=== PATIENT | female | born 1990 | race Two or more races ===

== ENCOUNTER 2016-06-18 11:41 | Inpatient (IN) | payer BC ==
--- NOTE | 2016-06-18 12:00 | L&D Flow Sheet ---
LD Flowsheet Datetime Report Generated by CPN: 06/18/2016 12:00 Datetime: 06/18/2016 11:58 Vital Signs NBP Sys/Tita/Mean (mmHg): 110 (QS system process) : 67 (QS system process) : 82 (QS system process) Pulse: 78 (QS system process)
[2016-06-18 12:39] LABS: APPEARANCE,URINE CLEAR; BILIRUBIN,URINE NEGATIVE (NEGATIVE); GLUCOSE, URINE NEGATIVE (NEGATIVE); KETONES,URINE NEGATIVE (NEGATIVE); LEUKOCYTE ESTERASE,URINE NEGATIVE (NEGATIVE); NITRITE,URINE NEGATIVE (NEGATIVE); PROTEIN,URINE NEGATIVE (NEGATIVE); UROBILINOGEN,URINE NEGATIVE mg/dL (<2.0)
[2016-06-18] MEDS ORDERED: RINGERS SOLUTION,LACTATED 1,000 ML IV ONE (14:03)
[2016-06-18] MEDS ORDERED: RINGERS SOLUTION,LACTATED 1,000 ML IV PRN (14:03)
[2016-06-18] MEDS ORDERED: FENTANYL CITRATE INJ/PF 100 MCG/2 ML AMPUL ONE (14:39)
[2016-06-18] MEDS ORDERED: PHENYLEPHRINE HCL INJ/PF 10 MG/1 ML SDV ONE (14:39)
[2016-06-18] MEDS ORDERED: EPHEDRINE SULFATE INJ 50 MG/1 ML AMPULE ONE (14:39)
[2016-06-18] MEDS ORDERED: BUPIVACAINE HCL 0.25 % INJ/PF (2.5 MG/1 ML) 30 ML VIAL ONE (14:40)
[2016-06-18] MEDS ORDERED: FENTANYL/BUPIVACAINE/NS/PF 200 MCG/100 ML RTUINJ EPI ONE (14:40)
[2016-06-18 14:42] LABS: ABSOLUTE BASOPHILS # (AUTO) 0.1 10^3/uL (0.0-0.2); ABSOLUTE EOSINOPHILS # (AUTO) 0.1 10^3/uL (0.0-0.6); ABSOLUTE LYMPHOCYTES (AUTO) 1.8 10^3/uL (0.5-4.7); ABSOLUTE MONOCYTES (AUTO) 0.7 10^3/uL (0.1-1.4); BASOPHILS % (AUTO) 0.4 % (0-2); EOSINOPHILS % (AUTO) 0.4 % (0-6); HEMATOCRIT 41.3 % (36.0-47.0); HEMOGLOBIN 13.7 g/dL (12.0-15.5); HGB HCT DIFFERENCE -0.2; MEAN CORPUSCULAR HGB CONC 33.1 g/dL (32.0-36.0); MEAN CORPUSCULAR VOLUME 81 fl (80-97); MONOCYTES % (AUTO) 5.5 % (3-13); RED BLOOD COUNT 5.07 10^6/uL (3.72-5.28); RED CELL DISTRIBUTION WIDTH 16.4 % (11.5-14.0); SEGMENTED NEUTROPHILS % (AUTO) 80.7 % (42-78); WHITE BLOOD COUNT 13.6 10^3/uL (4.0-10.5)
--- NOTE | 2016-06-18 16:00 | L&D Flow Sheet ---
LD Flowsheet Datetime Report Generated by CPN: 06/18/2016 16:00 Datetime: 06/18/2016 15:55 IV/Blood Work: New IV Bag Hung (Carol Marlatt, RN) Datetime: 06/18/2016 15:54 NBP Sys/Tita/Mean (mmHg): 119 (QS system process) : 56 (QS system process) : 81 (QS system process) Pulse: 91 (QS system process) LaborFlag: Antepartum (QS system process) Datetime: 06/18/2016 15:53 NBP Sys/Tita/Mean (mmHg): 149 (QS system process) : 63 (QS system process) : 91 (QS system process) Pulse: 106 (QS system process) LaborFlag: Antepartum (QS system process) Datetime: 06/18/2016 15:52 NBP Sys/Tita/Mean (mmHg): 156 (QS system process) : 69 (QS system process) : 99 (QS system process) Pulse: 94 (QS system process) LaborFlag: Antepartum (QS system process) Datetime: 06/18/2016 15:50 NBP Sys/Tita/Mean (mmHg): 148 (QS system process) : 91 (QS system process) : 104 (QS system process) Pulse: 101 (QS system process) LaborFlag: Antepartum (QS system process) Datetime: 06/18/2016 15:49 NBP Sys/Tita/Mean (mmHg): 115 (QS system process) : 66 (QS system process) : 86 (QS system process) Pulse: 102 (QS system process) LaborFlag: Antepartum (QS system process) Datetime: 06/18/2016 15:48 NBP Sys/Tita/Mean (mmHg): 114 (QS system process) : 67 (QS system process) : 85 (QS system process) Pulse: 96 (QS system process) LaborFlag: Antepartum (QS system process) Datetime: 06/18/2016 15:47 NBP Sys/Tita/Mean (mmHg): 129 (QS system process) : 78 (QS system process) : 97 (QS system process) Pulse: 89 (QS system process) Pulse: 86 (QS system process) SpO2 (%): 100 (QS system process) LaborFlag: Antepartum (QS system process) Datetime: 06/18/2016 15:46 NBP Sys/Tita/Mean (mmHg): 125 (QS system process) : 72 (QS system process) : 93 (QS system process) Pulse: 92 (QS system process) Epidural Procedure: Cath Placed (Carol Milian RN) Epidural Procedure: Test Dose (Carol Milian RN) LaborFlag: Antepartum (QS system process) Datetime: 06/18/2016 15:42 Pulse: 97 (QS system process) SpO2 (%): 99 (QS system process) LaborFlag: Antepartum (QS system process) Datetime: 06/18/2016 15:41 Procedure Type: Epidural (Carol Milian, CARMENCITA) Procedure Verify: Correct Patient Identity; Correct Side and Site are Marked; Accurate Procedure Consent Form; Correct Patient Position (Carol Milian RN) Anesthesia Plans: Epidural (Carol Milian RN) Epidural Positioning: Sitting (Carol Milian, CARMENCITA) Datetime: 06/18/2016 15:39 Epidural Positioning: Sitting (Carol Milian RN) Anesthesia Comments: Dr. Rose at bedside (Carol Milian, CARMENCITA) Datetime: 06/18/2016 15:36 Patient Position/Activity: Standing (Carol Marlatt, RN) Datetime: 06/18/2016 15:33 Pulse: 104 (QS system process) SpO2 (%): 90 (QS system process) LaborFlag: Antepartum (QS system process) Datetime: 06/18/2016 15:32 Pulse: 104 (QS system process) SpO2 (%): 95 (QS system process) LaborFlag: Antepartum (QS system process) Datetime: 06/18/2016 15:29 NBP Sys/Tita/Mean (mmHg): 124 (QS system process) : 88 (QS system process) : 102 (QS system process) Pulse: 111 (QS system process) LaborFlag: Antepartum (QS system process) Datetime: 06/18/2016 15:27 Pulse: 106 (QS system process) SpO2 (%): 100 (QS system process) LaborFlag: Antepartum (QS system process) Datetime: 06/18/2016 15:25 Epidural Positioning: Sitting (Carol Marlatt, RN) Datetime: 06/18/2016 15:04 IV/Blood Work: New IV Bag Hung (Carol Marlatt, RN) Datetime: 06/18/2016 15:00 Monitor Mode: External (Carol Marlatt, RN) Frequency (min): 3.5-7 (Carol Marlatt, RN) Quality: Moderate (Carol Marlatt, RN) Duration (sec): 80-120 (Carol Marlatt, RN) Resting Tone (Palpate): Relaxed (Carol Marlatt, RN) Monitor Mode: External US (Carol Marlatt, RN) FHR Baseline Rate : 120 (Carol Marlatt, RN) Variability: Moderate 6-25 bpm (Carol Marlatt, RN) Accelerations: 15X15 (Carol Marlatt, RN) Decelerations: Early (Carol Marlatt, RN) Datetime: 06/18/2016 14:51 I/O Interventions: Up to BR (Carol Marlatt, RN) Datetime: 06/18/2016 14:30 Monitor Mode: External (Carol Marlatt, RN) Frequency (min): 2-5 (Carol Marlatt, RN) Quality: Moderate (Carol Marlatt, RN) Duration (sec): 50-90 (Carol Marlatt, RN) Resting Tone (Palpate): Relaxed (Carol Marlatt, RN) Monitor Mode: External US (Carol Marlatt, RN) FHR Baseline Rate : 120 (Carol Marlatt, RN) Variability: Moderate 6-25 bpm (Carol Marlatt, RN) Accelerations: 15X15 (Carol Marlatt, RN) Decelerations: None (Carol Marlatt, RN) Comfort Measures: Rocking Chair (Carol Marlatt, RN) Datetime: 06/18/2016 14:28 I/O Interventions: Up to BR (Carol Marlatt, RN) Datetime: 06/18/2016 14:25 Pain Coping: Breathing Through Contractions (Carol Marlatt, RN) Datetime: 06/18/2016 14:23 IV/Blood Work: Labs Drawn (Carol Marlatt, RN) IV/Blood Work: IV Infusing per Order (Carol Marlatt, RN) Patient Care Comments: LR @ 125ml/hr (Carol Marlatt, RN) Datetime: 06/18/2016 14:15 IV/Blood Work: IV Started (Carol Milian RN) Patient Care Comments: 18G left forearm, infusing without problems, no reddness noted (Carol Milian RN) Datetime: 06/18/2016 14:01 Monitor Interventions for FHR: Ultrasound Adjusted (Carol Milian RN) Comments: tracing maternal HR (Carol Milian RN) Datetime: 06/18/2016 12:59 NBP Sys/Tita/Mean (mmHg): 115 (QS system process) : 69 (QS system process) : 87 (QS system process) Pulse: 74 (QS system process) Monitor Mode: External (Carol Milian RN) Frequency (min): 3-4.5 (Carol Milian RN) Quality: Mild/Moderate (Carol Milian RN) Duration (sec): 50-120 (Carol Milian RN) Resting Tone (Palpate): Relaxed (Carol Milian RN) Monitor Mode: External US (Carol Milian RN) FHR Baseline Rate : 125 (Carol Milian RN) Variability: Moderate 6-25 bpm (Carol Milian RN) Accelerations: 15X15 (Carol Milian RN) Decelerations: None (Carol Milian RN) Comments: monitors discontinued, patient ambulating (Carol Milian RN) LaborFlag: Antepartum (QS system process) Datetime: 06/18/2016 12:58 Provider Reviewed Strip: Yes (Carol Milian RN) Communication: Provider Orders Received; Call/Page Placed to Provider (Carol Milian RN) Provider Notified (Name): Deborah Streeter CNM (Carol Milian RN) Notification Reason: Status Update; Status; Uterine Activity; Pain (Carol Milian RN) Communication Comments: Notifed provider of reactive NST, CTXs, and SVE. Received order to have patient walk for an hour. (Carol Milian RN) Datetime: 06/18/2016 12:57 Dilatation (cm): 4.0 (Carol Marlatt, RN) Effacement (%): 70 (Carol Marlatt, RN) Station: -1 (Carol Marlatt, RN) Exam by: Doug Milian RN (Carol Bridgetlatt, RN) Cervix, Consistency: Moderate (Carol Marlatt, RN) Cervix, Position: Posterior (Carol Marlatt, RN) Datetime: 06/18/2016 12:30 Monitor Mode: External; Palpation (Carol Gilllatt, RN) Frequency (min): 2-6 (Carol Bridgetlatt, RN) Quality: Mild/Moderate (Carol Marlatt, RN) Duration (sec): 70-110 (Carol Marlatt, RN) Resting Tone (Palpate): Relaxed (Carol Bridgetlatt, RN) Monitor Mode: External US (Carol Bridgetlatt, RN) FHR Baseline Rate : 125 (Carol Marlatt, RN) Variability: Moderate 6-25 bpm (Carlo Marlatt, RN) Accelerations: 10X10 (Carol Marlatt, RN) Decelerations: None (Carol Marlatt, RN) Datetime: 06/18/2016 12:28 NBP Sys/Tita/Mean (mmHg): 118 (QS system process) : 64 (QS system process) : 85 (QS system process) Pulse: 81 (QS system process) LaborFlag: Antepartum (QS system process) Datetime: 06/18/2016 12:27 I/O Interventions: Popsicle (Carol Marlatt, RN) Datetime: 06/18/2016 12:19 Patient Position/Activity: Left Lateral; Low Fowlers (Carol Marlatt, RN) Datetime: 06/18/2016 12:13 Patient Position/Activity: Right Lateral; Low Fowlers (Carol Milian RN) Datetime: 06/18/2016 12:04 Patient Position/Activity: Right Lateral (Carol Milian RN) Datetime: 06/18/2016 12:01 Dilatation (cm): 3.5 (Carol Milian RN) Effacement (%): 70 (Carol Milian RN) Station: -1 (Carol Milian RN) Exam by: Doug Milian RN (Carol Milian RN) Vaginal Bleeding: None (Carol Milian RN) Cervix, Consistency: Moderate (Carol Milian RN) Cervix, Position: Posterior (Carol Milian RN) Datetime: 06/18/2016 12:00 Frequency (min): 5-6 minutes (Carol Milian RN) Pain Scale: 3 (Carol Milian RN) Pain Presence: Intermittent (Carol Milian RN) Pain Type: Cramping; Contraction (Carol Milian RN) Pain Location: Abdomen (Carol Milian RN) Pain Goal: 1 (Carol Milian RN) Pain Relief Measures: Comfort Measures (Carol Milian RN) Pain Coping: Talking Through Contractions; Breathing Through Contractions (Carol Milian RN) Membrane Status: Intact (Carol Milian RN) Vaginal Bleeding: None (Carol Milian RN) Level of Consciousness: Fully Conscious (Carol Milian RN) DTR's/Clonus: DTRs 2+; No Clonus (Carol Milian RN) Headache: Denies (Carol Milian RN) Breath Sounds, Left: Clear and Equal (Carol Milian RN) Breath Sounds, Right: Clear and Equal (Carol Milian RN) Nausea/Vomiting: Denies (Carol Milian RN) RUQ Epigastric Pain: Denies (Carol Milian RN) Instructional Method: Demo; Verbal; Patient Instructed; Family/Support Person Instructed; Verbalized Understanding (Carol Milian RN) Plan of Care: Plan of Care Discussed; Labor (Carol Milian RN) Unit Routine: Bethany to Room; Call Brown; Bed; Monitoring (Carol Milian RN) Labor/Induction: Labor Stages (Carol Milian RN) Pain Management: Comfort Measures (Carol Milian RN) LaborFlag: Antepartum (QS system process)
[2016-06-18] MEDS ORDERED: MISOPROSTOL 0.2 MG TABLET ONE (16:43)
[2016-06-18] MEDS ORDERED: LIDOCAINE 1% INJ-PF (10 MG/ML) 30 ML SDV ONE (16:43)
[2016-06-18] MEDS ORDERED: OXYTOCIN/NORMAL SALINE 20 UNIT/1,000 ML RTUINJ ONE (16:43)
[2016-06-18] MEDS ORDERED: PROMETHAZINE HCL 25 MG TABLET PO PRN (17:45)
[2016-06-18] MEDS ORDERED: PSEUDOEPHEDRINE HCL 30 MG TABLET PO PRN (17:45)
[2016-06-18] MEDS ORDERED: DIPHENHYDRAMINE HCL 25 MG CAPSULE PO PRN (17:45)
[2016-06-18] MEDS ORDERED: DIBUCAINE 1% OINTMENT 28 GM TP PRN (17:45)
[2016-06-18] MEDS ORDERED: MAGNESIUM HYDROXIDE SUSP 30 ML UDCUP PO PRN (17:45)
[2016-06-18] MEDS ORDERED: MEASLES,MUMPS&RUBELLA VACC/PF 0.5 ML VIAL SUBCUT PRN (17:45)
[2016-06-18] MEDS ORDERED: ACETAMINOPHEN 650 MG SUPP.RECT PR PRN (17:45)
[2016-06-18] MEDS ORDERED: OXYTOCIN/NORMAL SALINE 1,000 ML IV PRN (17:45)
[2016-06-18] MEDS ORDERED: ZOLPIDEM TARTRATE 5 MG TABLET PO PRN (17:45)
[2016-06-18] MEDS ORDERED: NA PHOS,M-B/NA PHOS,DI-BA (ADULT) 133 ML ENEMA PR PRN (17:45)
[2016-06-18] MEDS ORDERED: PROMETHAZINE HCL 25 MG SUPP.RECT PR PRN (17:45)
[2016-06-18] MEDS ORDERED: GLYCERIN/WITCH HAZEL LEAF 1 EACH MED..PAD TP PRN (17:45)
[2016-06-18] MEDS ORDERED: BENZOCAINE/MENTHOL AEROSOL SPRAY 56 ML TOP PRN (17:45)
[2016-06-18] MEDS ORDERED: DIPH/PERTUSS(ACELL)/TETANUS VAC/PF 0.5 ML SYR (>=10YO) IM PRN (17:45)
[2016-06-18] MEDS ORDERED: PROMETHAZINE HCL INJ 25 MG/1 ML VIAL IV PRN (17:45)
[2016-06-18] MEDS ORDERED: ACETAMINOPHEN WITH CODEINE #3 TABLET PO PRN (17:45)
[2016-06-18] MEDS: FERROUS SULFATE 325 MG TABLET PO SCH (21:04)
[2016-06-18] MEDS: DOCUSATE SODIUM 100 MG CAPSULE PO SCH (21:04)
[2016-06-18] MEDS: FAMOTIDINE 20 MG TABLET PO SCH (21:14)
[2016-06-18] MEDS: IBUPROFEN 800 MG TABLET PO SCH (21:14)
[2016-06-19] MEDS: ACETAMINOPHEN WITH CODEINE #3 TABLET PO PRN (03:31)
[2016-06-19] MEDS: IBUPROFEN 800 MG TABLET PO SCH ×3 (05:37→21:33)
--- NOTE | 2016-06-19 06:10 | L&D General Admission ---
General Admit Datetime Report Generated by CPN: 06/19/2016 06:00 INFORMATION Patient Age: 25 (04/24/2017 10:51:QS system process) EDC: 06/22/2016 00:00 (06/18/2016 12:06:Carol Milian RN) : 3 (06/18/2016 12:06:Carol Milian RN) Para: 1 (06/18/2016 12:06:Carol Milian RN) Term: 1 (06/18/2016 12:06:SELWYN Rojas) : 0 (06/18/2016 12:06:SELWYN Rojas) Spontaneous Abortions: 0 (06/18/2016 12:06:SELWYN Rojas) Induced Abortions: 0 (06/18/2016 12:06:SELWYN Rojas) Livin (06/18/2016 12:06:SELWYN oRjas) Cesareans: 0 (06/18/2016 12:06:SELWYN Rojas) VBACs: 0 (06/18/2016 12:06:SELWYN Rojas) Ectopic: 0 (06/18/2016 12:06:SELWYN Rojas) Multiple Births: 0 (06/18/2016 12:06:SELWYN Rojas) Baby, Number in Womb: 1 (06/18/2016 12:06:SELWYN Rojas) CARE [facility] Explosive [facility] (06/18/2016 12:06:Carol Milian RN) Adequate Care: Yes (06/18/2016 12:06:Carol Milian RN) Height (in): 61 (06/18/2016 19:28:QS system process) ALLERGIES Medication Allergy: No (06/18/2016 12:06:Carol Milian RN) Medication Allergies: No Known Allergies (06/18/2016) (06/18/2016 12:12:QS system process) Latex Allergy: No Latex Allergies (06/18/2016 12:06:Carol Milian RN) COMMUNICATION Primary Language: Syrian (06/18/2016 12:06:Carol Milian RN) DEMOGRAPHICS Address: [address] [place] [id number] (06/18/2016 11:41:QS system process) Zipcode: [address] (06/18/2016 11:41:QS system process) Home (06/18/2016 11:41:QS system process) N: [id number] (04/24/2016 10:51:QS system process) Next of Kin Name: ANIVAL GRANDA (04/24/2016 10:51:QS system process) Next of Kin (06/18/2016 11:41:QS system process) Next of Kin Relationship: MO (04/24/2016 10:51:QS system process) Date of : 1990 (04/24/2016 10:51:QS system process) Marital Status: (04/24/2016 10:51:QS system process) Sex: Female (04/24/2016 10:51:QS system process) Race: Other (04/24/2016 10:51:QS system process) Ethnicity: or (04/24/2016 10:51:QS system process) Jew: None (04/24/2016 10:51:QS system process) DRUG AND ALCOHOL USE Alcohol: No (06/18/2016 12:06:Carol Milian RN) Cigarettes: Never Smoker. [phone] (06/18/2016 12:06:Carol Milian RN) Marijuana: No (06/18/2016 12:06:Carol Milian RN) Cocaine: No (06/18/2016 12:06:Carol Milian RN) Other Illicit Drugs: No (06/18/2016 12:06:Carol Milian RN) VACCINE HISTORY Influenza Vaccine: Yes (06/18/2016 12:06:Carol Milian RN) Influenza Date: 03-27-16 (Annotations: Data stored by [employer] on behalf of user) (06/18/2016 12:06:Carol Milian RN) Tetanus Vaccine: Yes (06/18/2016 12:06:SELWYN Rojas) Tetanus Date: 03-27-16 (06/18/2016 12:06:SELWYN Rojas) Tdap Vaccine: Yes (06/18/2016 12:06:Carol Milian RN) Tdap Date: 03-27-16 (06/18/2016 12:06:Carol Milian RN) Manager Rn: [facility] (06/18/2016 12:06:Carol Milian RN) Feeding Preference: Breast (06/18/2016 12:06:Carol Milian RN) Benefit of Breast Feed Discussed: Yes (06/18/2016 12:06:Carol Milian RN) Circumcision: No (06/18/2016 12:06:Carol Milian RN) Classes Attended: No (06/18/2016 12:06:Carol Milian RN) Tubal Ligation: No (06/18/2016 12:06:Carol Milian RN) Tubal Authorization Signed: N/A (06/18/2016 12:06:Carol Milian RN) Consent: N/A (06/18/2016 12:06:Carol Milian RN) Consent Signed: N/A (06/18/2016 12:06:Carol Milian RN) Pain Management Plans: Epidural (06/18/2016 12:06:Carol Milian RN) Support Person: Mario (06/18/2016 12:06:Carol Milian RN) Support Person Relationship: (06/18/2016 12:06:Carol Milian RN) Cultural/Spritual Practice: [place]a (06/18/2016 12:06:Carol Milian RN) Spir/Cult Dietary Needs: No (06/18/2016 12:06:Carol Milian RN) LIVING SITUATION/DISCHARGE PLAN Living Arrangements: [place] (06/18/2016 12:06:Carol Milian RN) Adequate Access to:: Electric; Heat; Refrigeration; Plumbing/Running water; Phone; Transportation (06/18/2016 12:06:Carol Milian RN) WIC Program: [place] (06/18/2016 12:06:Carol Milian RN) 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 Power Generation Equipment 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 Person: Mario (06/18/2016 12:06:Carol Milian RN) Person to Help after Discharge: Mario (06/18/2016 12:06:Carol Milian RN) Currently Using Commun Resources: [place] (06/18/2016 12:06:Carol Milian RN) Car Seat for Discharge: Yes (06/18/2016 12:06:Carol Milian RN) Adoption Requested: No (06/18/2016 12:06:Carol Milian RN) LABS Blood Type: O Positive (06/18/2016 12:06:Carol Milian RN) Antibody Screen: negative (06/18/2016 12:06:Carol Milian RN) Hemoglobin: 13.7 (06/18/2016 14:20:QS system process) Hematocrit: 41.3 (06/18/2016 14:20:QS system process) MCV: 81 (06/18/2016 14:20:QS system process) Group Beta Strep: negative (06/18/2016 12:06:Carol Milian RN) Chlamydia: Negative (06/18/2016 12:06:Carol Milian RN) RPR/VDRL: Nonreactive (06/18/2016 12:06:Carol Milian RN) Hepatitis B: Negative (06/18/2016 12:06:Carol Milian RN) Rubella: Immune (06/18/2016 12:06:Carol Milian RN) OB/PREVIOUS HISTORY History of Previous : No (06/18/2016 12:06:Carol Milian RN) History of Gestational Diabetes: No (06/18/2016 12:06:Carol Milian RN) History of PIH: No (06/18/2016 12:06:Carol Milian RN) History of Incompetent Cervix: No (06/18/2016 12:06:Carol Milian RN) History of Placenta Previa/Abrup: No (06/18/2016 12:06:Carol Milian RN) History of Macrosomia: No (06/18/2016 12:06:Carol Milian RN) History of IUGR: No (06/18/2016 12:06:Carol Milian RN) History of Hemorrhage: No (06/18/2016 12:06:Carol Milian RN) History of Loss/Stillborn: No (06/18/2016 12:06:Carol Milian RN) History of : No (06/18/2016 12:06:Carol Milian RN) History of D (Rh) Sensitization: No (06/18/2016 12:06:Carol Milian RN) History Recurrent Loss/Stillborn: No (06/18/2016 12:06:Carol Milian RN) History Depression/PP Depression: No (06/18/2016 12:06:Carol Milian RN) History of Uterine Anomaly/KATHERIN: No (06/18/2016 12:06:Carol Milian RN) History of Infertility: No (06/18/2016 12:06:Carol Milian RN) History of ART Treatment: No (06/18/2016 12:06:Carol Milian RN) History of KATHERIN: No (06/18/2016 12:06:Carol Milian RN) Comments Obstetrical History: G1: 2009 - vaginal, female 6#4oz G2: 2011 SAB G3: current (06/18/2016 12:06:Carol Milian RN) MEDICAL HISTORY Med Hx Diabetes: No (06/18/2016 12:06:Carol Milian RN) Med Hx Hypertension: No (06/18/2016 12:06:Carol Milian RN) Med Hx Heart Disease: No (06/18/2016 12:06:Carol Milian RN) Med Hx Autoimmune Disorder: No (06/18/2016 12:06:Carol Milian RN) Med Hx Kidney Disease/UTI: No (06/18/2016 12:06:Carol Milian RN) Med Hx Neurologic/Epilepsy: No (06/18/2016 12:06:Carol Milian RN) Med Hx Psychiatric Disorders: No (06/18/2016 12:06:Carol Milian RN) Med Hx Hepatitis/Liver Disease: No (06/18/2016 12:06:Carol Milian RN) Med Hx Varicosities/Phlebitis: No (06/18/2016 12:06:Carol Milian RN) Med Hx Thyroid Dysfunction: No (06/18/2016 12:06:Carol Milian RN) Med Hx Trauma/Violence: No (06/18/2016 12:06:Carol Milian RN) Med Hx Blood Transfusion: No (06/18/2016 12:06:Carol Milian RN) Med Hx Pulmonary (Asthma,TB): No (06/18/2016 12:06:Carol Milian RN) Med Hx Breast: No (06/18/2016 12:06:Carol Milian RN) Med Hx ATTIC BLOWER Surgery: No (06/18/2016 12:06:Carol Milian RN) Med Hx Hospitalization/Surgery: No (06/18/2016 12:06:Carol Milian RN) Med Hx Anesthetic Complications: No (06/18/2016 12:06:Carol Milian RN) Med Hx Abnormal Pap Smear: No (06/18/2016 12:06:Carol Milian RN) Other Medical Diseases: No (06/18/2016 12:06:Carol Milian RN) Med Hx Significant Family Hx: No (06/18/2016 12:06:Carol Milian RN) INFECTIOUS HISTORY Inf Hx Gonorrhea: No (06/18/2016 12:06:Carol Milian RN) Inf Hx Chlamydia: No (06/18/2016 12:06:Carol Milian RN) Inf Hx Syphilis: No (06/18/2016 12:06:Carol Milian RN) Inf Hx HIV/AIDS: No (06/18/2016 12:06:Carol Milian RN) Inf Hx Human Papilloma Virus: No (06/18/2016 12:06:Carol Milian RN) Inf Hx Pt/Partner Genital Herpes: No (06/18/2016 12:06:Carol Milian RN) Inf Hx Tuberculosis/Exposure: No (06/18/2016 12:06:Carol Milian RN) Inf Hx Hepatitis B,C: No (06/18/2016 12:06:Carol Milian RN) Inf Hx Rash or Viral Illness: No (06/18/2016 12:06:Carol Milian RN) GENETIC HISTORY Gen Hx Age >=35 at JUNIOR: No (06/18/2016 12:06:Carol Milian RN) Gen Hx Thalassemia: No (06/18/2016 12:06:Carol Milian RN) Gen Hx Congenital Heart Defect: No (06/18/2016 12:06:Carol Milian RN) Gen Hx Neural Tube Defect: No (06/18/2016 12:06:Carol Milian RN) Gen Hx Down's Syndrome: No (06/18/2016 12:06:Carol Milian RN) Gen Hx Aniceto-Sachs: No (06/18/2016 12:06:Carol Milian RN) Gen Hx Raeann: No (06/18/2016 12:06:Carol Milian RN) Gen Hx Familial Dysautonomia: No (06/18/2016 12:06:Carol Milian RN) Gen Hx Sickle Cell Disease/Trait: No (06/18/2016 12:06:Carol Milian RN) Gen Hx Hemophilia/Blood Disorder: No (06/18/2016 12:06:Carol Milian RN) Gen Hx Muscular Dystrophy: No (06/18/2016 12:06:Carol Milian RN) Gen Hx Cystic Fibrosis: No (06/18/2016 12:06:Carol Milian RN) Gen Hx [place] Chorea: No (06/18/2016 12:06:Carol Milian RN) Gen Hx Mental Retardation/Autism: No (06/18/2016 12:06:Carol Milian RN) Gen Hx Tested for Fragile X: No (06/18/2016 12:06:Carol Milian RN) Gen Hx Other Inher/Chromosomal: No (06/18/2016 12:06:Carol Milian RN) Gen Hx Maternal Metabolic DO: No (06/18/2016 12:06:Carol Milian RN) Gen Hx Pt Father or FOB Defect: No (06/18/2016 12:06:Carol Milian RN) Gen Hx Other Genetic History: No (06/18/2016 12:06:Carol Milian RN) Gen Hx Drugs/Meds since LMP: No (06/18/2016 12:06:Carol Milian RN)
--- NOTE | 2016-06-19 06:10 | L&D Current Admission ---
Current Admit Datetime Report Generated by N: 06/19/2016 06:00 ADMISSION INFORMATION Current Admit Date/Time: 06/18/2016 14:00 (06/18/2016 14:21:Carol Milian RN) Reason for Admission: Onset of Labor (06/18/2016 14:21:Carol Milian RN) Chief Complaint: Contractions (06/18/2016 12:00:Carol Milian RN) EGA per Dates: 39.3 (06/18/2016 14:21:QS system process) Method of Arrival: Ambulatory (06/18/2016 14:21:Carol Milian RN) Admitted From: Home (06/18/2016 14:21:Carol Milian RN) Reason for Induction: Not Applicable (06/18/2016 14:21:Carol Milian RN) Records Available: Yes (06/18/2016 14:21:Carol Milian RN) General Admission Information: Reviewed; Updated; Confirmed (06/18/2016 14:21:Carol Milian RN) General Admission Reviewed By: Doug Milian RN (06/18/2016 14:21:Carol Milian RN) BELONGINGS/ADVANCED DIRECTIVES Valuables/Personal Effects: Purse/Wallet; Cell Phone (06/18/2016 14:21:Carol Milian RN) Disposition of Belongings: Kept with Patient (06/18/2016 14:21:Carol Milian RN) Advance Direct for Healthcare: No, and Wants No Information (06/18/2016 14:21:Carol Milian RN) Durable Power of Melt Superintendant: No (06/18/2016 14:21:Carol Milian RN) Living Will: No (06/18/2016 14:21:Carol Milian RN) Organ Donor: No (06/18/2016 14:21:Carol Milian RN) Pt Rights Information Given: Yes (06/18/2016 14:21:Carol Milian RN) Pt Understands Pt Rights: Yes (06/18/2016 14:21:Carol Milian RN) LEARNING ASSESSMENT Knowledge Level: Understands L_D Process (06/18/2016 14:21:Carol Milian RN) Barriers to Learning: None (06/18/2016 14:21:Carol Milian RN) Learning Readiness: Motivated (06/18/2016 14:21:Carol Milian RN) Learns Best By: 1 to 1 Instruction (06/18/2016 14:21:Carol Milian RN) Learning Needs: Labor and Delivery Process; Pain Management; Symptoms to Report; Treatment Plan (06/18/2016 14:21:Carol Milian RN) DOMESTIC VIOLANCE SCREENING Dom Viol Threatened/Hurt: No (06/18/2016 14:21:Carol Milian RN) Hx of Abuse/Neglect past 2yrs: No (06/18/2016 14:21:Carol Milian RN) Feel Unsafe Going Home: No (06/18/2016 14:21:Carol Milian RN) Addt'l Observ Indicating Abuse: No (06/18/2016 14:21:Carol Milian RN) Reason Unable to Complete Screen: N/A, Screen Completed (06/18/2016 14:21:Carol Milian RN) Considered Personal Harm/Suicide: No (06/18/2016 14:21:Carol Milian RN) NUTRITIONAL/FUNCTIONAL SCREENING Problem with Appetite >5 Days: No (06/18/2016 14:21:Carol Milian RN) Chew/Swallow Difficulties: No (06/18/2016 14:21:Carol Milian RN) Inappropriate Wt Gain/Loss: No (06/18/2016 14:21:Carol Milian RN) Presence Skin Breakdown/Ulcer: No (06/18/2016 14:21:Carol Milian RN) Special Diet: No (06/18/2016 14:21:Carol Milian RN) Pt Requests Intelligent Systems Engineer Visit: No (06/18/2016 14:21:Carol Milian RN) Hx of Any of the Following?: N/A (06/18/2016 14:21:Carol Milian RN) New Diagnosis of: N/A (06/18/2016 14:21:Carol Milian RN) Requires Assist w/Ambulation: No (06/18/2016 14:21:Carol Milian RN) Uses Assist Device to Ambulate: No (06/18/2016 14:21:Carol Milian RN) Pt Requires Help w/ADL's: No (06/18/2016 14:21:Carol Milian RN)
--- NOTE | 2016-06-19 06:24 | L&D Care Plan ---
LD CARE PLANS Datetime Report Generated by CPN: 06/19/2016 06:15 Datetime: 06/18/2016 14:07 Pain State: Actual (Alexsandra Camp, RNC) Related To: Labor and Delivery Process; Treatment and Procedures; Post (Alexsandra Camp, RNC) Goal(s): Patients Pain will be Assessed and Managed; Patient will Verbalize Adequate Relief of Pain or the Ability to [place] with Current Pain (Alexsandra Camp, RNC) Interventions: Assess Pain Severity on Scale of 0 (None) to 5 (Severe); Assess Type, Location and Intensity of Pain Each Time Client Reports Discomfort and Notify Provider if Unusal Pain Develops; Encourage Proper Breathing and Relaxation Techniques; Offer Alternatives Such as Repositioning, Calm Environment, Massages, Diversional Activities, Ice Pack, Splinting, and Ambulation; Administer Analgesics as Ordered; Assist with Epidural Placement as Appropriate; Evaluate Therapeutic Effectiveness of Medication and Treatments (Alexsandra Nichole, SELWYN) Outcome: Patient will Report Absence or Relief of Pain Consistent with Established Pain Goal (SELWYN Rojas) Status: Ongoing (Alexsandra Nichole, SELWYN) Outcome: Patient will have a Decrease in Signs and Symptoms of Discomfort (Alexsandra Nichole, RNC) Status: Ongoing (Alexsandra Nichole, SELWYN) Outcome: Pain will be Controlled During Procedures (Alexsandra Nichole, SELWYN) Status: Ongoing (SELWYN Rojas) Anxiety State: Risk For (Alexsandra Nichole, SELWYN) Related To: Labor and Delivery Process; Medical Interventions (SELWYN Rojas) Goal(s): Patient will have Decreased Anxiety and be able to Function at Acceptable Levels (SELWYN Rojas) Interventions: Assess Verbal and Nonverbal Behavioral Indicators of Anxiety; Assist Patient to Identify and Verbalize Symptoms of Anxiety; Identify and Demonstrate Techniques to Control Anxiety; Assist Patient with Coping Mechanisms to Manage Anxiety; Provide Theraputic Touch for the Patient; Explain to Patient, Using a Calm Reassuring Approach and Nonmedical Terms, All Activities, Procedures, and Concerns; Instruct Patient and Family about Post Discharge Care, Limitations, Symptoms to Report and Resources Available (Alexsandra Nichole, SELWYN) Outcome: Patient will Identify, Verbalize and Demonstrate Techniques to Control Anxiety (SELWYN Rojas) Status: Ongoing (SELWYN Rojas) Outcome: Patient's Posture, Facial Expressions, Gestures and Activity Level will Reflect Decreased Anxiety (SELWYN Rojas) Status: Ongoing (SELWYN Rojas) Outcome: Patient will Verbalize a Sense of Control and/or Acceptance of the Situation (SELWYN Rojas) Status: Ongoing (Alexsandra Nichole RNZulma) Outcome: Patient will Identify and Utilize Support Person (SELWYN Rojas) Status: Ongoing (Alexsandra Nichole RN) Knowledge Deficit State: Actual (SELWYN Rojas) Related To: Labor and Delivery Process; Treatment and Procedures; Feeding and Care; Community Resources and Available Support Mechanisms (SELWYN Rojas) Goal(s): Patient will Accurately Verbalize Understanding of Plan of Care and Treatment; Patient and Family will Accurately Verbalize Understanding of the Disease Process (SELWYN Rojas) Interventions: Assess Motivation and Willingness of Patient/Family to Learn; Assess Preferred Learning Mode: One to One Instruction, Reading, Videos, Group Discussion or Demonstration; Assess Barriers to Learning: Pain, Emotional State, Language Barrier, Cognitive Impairment, Visual or Hearing Deficits; Assess Patient and Family Knowledge of Disease Process, Medications and Treatment; Discuss Therapy and/or Treatment Options, Describe Rationale Behind Management, Therapy and Treatment Recommendations; Instruct Patient and Family on Signs and Symptoms to Report; Instruct Patient and Family on Medication Effects and Side Effects; Provide Appropriate and Timely Education Using Multiple Techniques; Provide Patient and Family with Support Group Information and Resources; Give Clear and Thorough Explanations and Demonstrations (SELWYN Rojas) Outcome: Patient and Family will Verbalize Understanding of Condition, Treatment and Signs and Symptoms to Report (SELWYN Rojas) Status: Ongoing (SELWYN Rojas) Outcome: Patient will Identify Perceived Learning Needs and Express Motivation to Learn (Alexsandra [place], [facility]) Status: Ongoing ([facility], [facility]) Outcome: Patient will Verbalize Understanding of Desired Content, and/or Performs Desired Skill [facility] Status: Ongoing ([facility], [facility]) Infection State: Risk For (Alexsandra Nichole, [facility]) Related To: Invasive Procedures (Alexsandra [place], [facility]) Goal(s): The Patient will be Free of Infection, Vital Signs Stable and Lab Work within Normal Parameters ([facility], [facility]) Interventions: Instruct and Reinforce Proper Handwashing, Hygiene, and Care Techniques to Patient and Family; Monitor Vital Signs; Monitor Patient for the Following Signs of Infection: Fever, Abdominal Tenderness, Unusual Discharge; Monitor Aminiotic Fluid, Urine and Lochia for Color and Odor; Observe Wounds, Incisions and Invasive Line Sites for Redness, Drainage and Edema; Assess IV Sites per Hospital Policy; Monitor Lab and Test Results and Notify Provider of Abnormal Findings; Assess Nutritional Status and Promote Good Nutrition (Alexsandra [place], [facility]) Outcome: Patient will Remain Free of Infection ([facility], [facility]) Status: Ongoing ([facility], [facility]) Outcome: Infection will be Recognized Early to Allow for Prompt Treatment [facility] Status: Ongoing [facility] Outcome: Patient will have Vital Signs Within Expected Range ([facility], RN) Status: Ongoing ([facility], [facility]) Injury State: Risk For (Alexsandra Camp, RNC) Related To: Labor and Delivery Process; Anesthesia (Alexsandra Camp, RNC) Goal(s): Patient will Remain Free from Injury (Alexsandra Camp, RNC) Interventions: Monitoring as per Hospital Protocol; Assess Neurological Status; Perform Risk Assessment of Patients with Induction and ; Perform Fall Risk Assessment and Prevention per Hospital Protocol; Perform DVT Risk Assessment and Prophylaxis per Hospital Protocol; Ensure that Oxygen, Suction, and Resuscitation Medications and Equipment are Readily Available; Confirm Patient ID Prior to Procedure(s) and Medication Administration per Hospital Policy (Alexsandra Camp, RNC) Outcome: Successful Fall Risk Prevention (Alexsandra Camp, RNC) Status: Ongoing (Alexsandar Camp, RNC) Outcome: Patient will Deliver Infant without Adverse Sequela (Alexsandra Camp, RNC) Status: Ongoing (Alexsandra Camp, RNC) Outcome: Patient's Neurological Status will Remain Stable (Alexsandra Camp, RNC) Status: Ongoing (Alexsandra Camp, RNC) Impaired Skin Integrity State: Risk For (Alexsandra Camp, RNC) Related To: Vaginal Delivery; Invasive Procedures (Alexsandra Camp, RNC) Goal(s): Patient will Maintain Optimal Skin Integrity, Free of Breakdown, Injury or Infection (Alexsandra Camp, RNC) Interventions: Complete Screening for Pressure Ulcer Risk and Initiate Protocol per Hospital Policy; Monitor Site of Skin Impairment for Color Changes, Redness, Swelling, Warmth, Pain or Other Signs of Infection; Encourage and Assist with Position Changes; Monitor Patient's Mobility Status; Provide Adequate Nutrition and Fluids; Teach Patient Appropriate Hygienic Care; Teach Patient/Family Skin Care Management (Alexsandra Nichole, RNC) Outcome: Patient will not have Evidence of Injury Such as Skin Breakdown, Scrapes, Cuts, or Bruising (Alexsandra Nichole, RNC) Status: Ongoing (Alexsandra Nichole, RNC) Outcome: Patient will Report Any Altered Sensation or Pain at Site of Skin Impairment (Alexsandra Nichole, RNC) Status: Ongoing (Alexsandra Nichole, RNC) Outcome: Patients Incisions and Wounds will be without Signs or Symptoms of Infection (Alexsandra Nichole, RNC) Status: Ongoing (Alexsandra Nichole, RNC) Outcome: Patient will Demonstrate Understanding of Plan to Heal Skin and Prevent Reinjury and Verbalize Risk Factors (Alexsandra Nichole, RNC) Status: Ongoing (Alexsandra Nichole, RNC)
--- NOTE | 2016-06-19 06:24 | L&D Flow Sheet ---
LD Flowsheet Datetime Report Generated by CPN: 06/19/2016 06:15 Datetime: 06/18/2016 19:10 Pain Scale: 0 (Carol Marlatt, RN) Pain Presence: None/Denies (Carol Marlatt, RN) Pain Type: N/A (Carol Marlatt, RN) Datetime: 06/18/2016 18:44 NBP Sys/Tita/Mean (mmHg): 102 (QS system process) : 58 (QS system process) : 75 (QS system process) Pulse: 76 (QS system process) Datetime: 06/18/2016 18:40 Stage of : Recovery (Carol Marlatt, RN) Pain Scale: 0 (Carol Marlatt, RN) Pain Presence: None/Denies (Carol Marlatt, RN) Pain Type: N/A (Carol Marlatt, RN) Datetime: 06/18/2016 18:34 NBP Sys/Tita/Mean (mmHg): 108 (QS system process) : 59 (QS system process) : 78 (QS system process) Pulse: 74 (QS system process) Datetime: 06/18/2016 18:24 NBP Sys/Tita/Mean (mmHg): 107 (QS system process) : 59 (QS system process) : 80 (QS system process) Pulse: 85 (QS system process) Datetime: 06/18/2016 18:15 Stage of : Recovery (Carol Milian RN) NBP Sys/Tita/Mean (mmHg): 106 (QS system process) : 57 (QS system process) : 76 (QS system process) Pulse: 84 (QS system process) Pain Scale: 0 (Carol Milian RN) Pain Presence: None/Denies (Carol Milian RN) Pain Type: N/A (Carol Milian RN)
[2016-06-19 07:20] LABS: HEMATOCRIT 33.1 % (36.0-47.0); HGB HCT DIFFERENCE -1.6; MEAN CORPUSCULAR HEMOGLOBIN 26.3 pg (27.0-33.4); MEAN CORPUSCULAR HGB CONC 31.8 g/dL (32.0-36.0); MEAN CORPUSCULAR VOLUME 83 fl (80-97); RED BLOOD COUNT 4.01 10^6/uL (3.72-5.28); RED CELL DISTRIBUTION WIDTH 16.5 % (11.5-14.0); WHITE BLOOD COUNT 14.3 10^3/uL (4.0-10.5)
[2016-06-19 07:22] LABS: HEMOGLOBIN 10.5 g/dL (12.0-15.5)
[2016-06-19] MEDS: SENNOSIDES/DOCUSATE 8.6-50 MG 1 EACH TABLET PO SCH (09:27)
[2016-06-19] MEDS: PRENATAL VITAMIN W-O CA NO5/FE FUMARATE/FA CAPSULE PO SCH (09:27)
[2016-06-19] MEDS: FERROUS SULFATE 325 MG TABLET PO SCH ×2 (09:28→17:28)
[2016-06-19] MEDS: DOCUSATE SODIUM 100 MG CAPSULE PO SCH ×2 (09:28→17:28)
[2016-06-19] MEDS: FAMOTIDINE 20 MG TABLET PO SCH ×2 (09:28→21:33)
--- NOTE | 2016-06-19 09:46 | Delivery Summary ---
Del Sum A-C Datetime Report Generated by CPN: 06/19/2016 09:45 ADMISSION DATA Chief Complaint: Uterine Contractions Indication for Induction: Not Applicable Admission Impression: Term, Intrauterine ; Active Labor; Intact Membranes Admit Provider Comments: 25 y/o admitted to L_D in labor, walked and had cervical change, Cat 1 strip, family at Ambulate, ROM later, anticipate DELIVERY PERSONNEL Delivery Doctor:: Vinny Hodge MD Nurse Dental Practitioner Certified:: Mary Streeter, CNM Labor and Delivery Nurse:: Carol Milian RNribber Nurse:: SELWYN Richardson [place] Regulator/MANAGER EDUCATION: Antonettedanny Russell, TYPING SECRETARY [place] Regulator/MANAGER EDUCATION: James Rolando, ST MATERNAL INFORMATION Delivery Anesthesia: Epidural Medications After Delivery: Pitocin Bolus-Please Comment Estimated Blood Loss (ml): 250 Maternal Complications: None Provider Comments: Kiwi vacuum for bradycardia. The pressure was in the green during two contractions and pressure let off after the contractions. There were two gentle pop offs due to poor vacuum seal on a baby with alot of hair. LABOR SUMMARY EDC: 06/22/2016 00:00 No. Babies in Womb: 1 Attempted: No Labor Anesthesia: Epidural LABOR INFORMATION Reason for Induction: Not Applicable Onset of Labor: 06/18/2016 14:00 Complete Dilatation: 06/18/2016 16:50 Oxytocin: N/A Group B Beta Strep: negative Steroids Given: None MEMBRANES Membranes Rupture Method: Artificial Rupture of Membranes: 06/18/2016 16:40 Length of Rupture (hr): 0.45 Amniotic Fluid Color: Light Meconium Amniotic Fluid Amount: Scant Amniotic Fluid Odor: Normal STAGES OF LABOR Stage 1 hr: 2 Stage 1 min: 50 Stage 2 hr: 0 Stage 2 min: 17 Stage 3 hr: 0 Stage 3 min: 10 Total Time in Labor hr: 3 Total Time in Labor min: 17 VAGINAL DELIVERY Episiotomy: None Laceration Extension: Second Degree Laceration Type: Perineal; Vaginal Laceration Repair: Yes Laceration Repair Note: bleeding vaginal laceration repaired with 3-0 chromic in running locking fashion. Second degree perineal laceration repaired with 3-0 chromic in usual fashion. Sponge Count Correct: Yes; Vaginal Sweep Performed Sharps Count Correct: Yes CSECTION DELIVERY Primary Indication: N/A Secondary Indication: N/A CSection Incidence: N/A Labor: N/A Elective: N/A CSection Incision: N/A BABY A INFORMATION Infant Delivery Date/Time: 06/18/2016 17:07 Method of Delivery: Vaginal Born in Route : No : N/A Forceps: N/A Vacuum Extraction: Successful Shoulder Dystocia : No ASSISTED DELIVERY BABY A Indication for Assisted Delivery: bradycardia Catheter Prior to Procedure: Yes Position Vacuum/Forcep Apply: Right Occipital Anterior Vacuum Number of Pulls: 3 Vacuum Number of PopOffs: 2 Reduce Pressure btwn Ctx: Yes Vacuum Cone Former: kiwi Total Time Vacuum Applied: less than a minute Vacuum/Forceps Comment: pressure in the green on the vacuum PRESENTATION/POSITION BABY A Presentation: Cephalic Cephalic Presentation: Vertex Vertex Position: Right Occipital Anterior Breech Presentation: N/A PLACENTA INFORMATION BABY A Placenta Delivery Time : 06/18/2016 17:17 Placenta Method of Delivery: Manual Removal Placenta Status: Delivered SCORES BABY A Heart Rate 1 min: >100 bpm Resp Effort 1 min: Good Cry Reflex Irritability 1 min: Cough or Sneeze or Pulls Away Muscle Tone 1 min: Active Motion Color 1 min: Body [place], Extremities Blue Resuscitation Effort 1 min: Tactile Stimulation SCORE 1 MIN: 9 Heart Rate 5 min: >100 bpm Resp Effort 5 min: Good Cry Reflex Irritability 5 min: Cough or Sneeze or Pulls Away Muscle Tone 5 min: Active Motion Color 5 min: Body [place], Extremities Blue Resuscitation Effort 5 min: Tactile Stimulation SCORE 5 MIN: 9 INFORMATION BABY A Gestational Age at Delivery: 39.0 Gestational Status: Full Term- 39- 40.6 Weeks Outcome : Liveborn Infant Condition : Stable Sex: Male IDENTIFICATION BABY A Verification Date/Time: 06/18/2016 17:21 ID Band Number: [id number] Mother's Name Verified: Yes RN Verifying : Dorcas Noble CARMENCITA Aysha Mccoy RN CORD INFORMATION BABY A No. Cord Vessels: 3 Nuchal Cord : N/A Cord Blood Taken: Yes-For Eval (Mom's Blood Type - or O+) Suction: None ASSESSMENT BABY A Complications: Extended Bradycardia; Meconium Physical Findings at Delivery: Molding of the Head Infant Respirations: Appears Normal Skin to Skin: Yes Skin to Skin Time (min): 60 Pipe Finishing Supervisor/ALS Called : No Infant Care By: Amy Gibbs RN Transferred To: Remains with Mother BABY B INFORMATION : N/A SIGNATURES Signature: with User ID: [email or web address]
--- NOTE | 2016-06-19 09:47 | Admission Physical ---
Datetime Report Generated by KARTHIK: 06/19/2016 09:47 Hx Assessment: The History has been Reviewed and is Current Chief Complaint: Uterine Contractions Indication for Induction: Not Applicable Admit Plan: Admit to Unit; Initiate Labor Protocol Term: 1 : 0 SAB: 0 IAB: 0 Ectopic: 0 Livin Cesareans: 0 VBACs: 0 Multiple Births: 0 General: Normal HEENT: Normal Neurologic: Normal Thyroid: Normal Heart: Normal Lungs: Normal Breast: Deferred Back: Normal Abdomen: Normal Genitourinary Exam: Normal Extremities: Normal DTRs: Normal Pelvic Type: Adequate Physical Exam Comments: GBS Neg Vital Signs: Reviewed Dilatation: 4 Effacement: 70 Station: -1 Membranes: Intact Monitoring: External US FHR- Baseline: 130 Variability: Moderate 6-25bpm Accelerations: 15X15 Decelerations: None Presentation: Vertex Admit Comment: 25 y/o admitted to L_D in labor, walked and had cervical change, Cat 1 strip, family at BS Ambulate, ROM later, anticipate Assignment: Vinny Hodge MD Signature: with User ID: [email or web address] : with User ID: [email or web address]
--- NOTE | 2016-06-19 09:53 | PDOC PROGRESS REPORT ---
Subjective-OB Subjective: Post Delivery Day: 25 year old. Denies any needs at this time s/p vaginal delivery pt bonding well with ok exchange underwriting consultant at bedside encouraged pt to request more help with [email or web address] mild lochia spouse present d/c in am Physical Exam (OB) Vital Signs: Temp Pulse Resp BP Pulse Ox 97.8 F 89 17 126/73 H 100 06/19/16 08:02 06/19/16 08:02 06/19/16 08:02 06/19/16 08:02 06/19/16 08:02 Intake & Output 06/18/16 06/19/16 06/20/16 06:59 06:59 06:59 Intake Total 500 Balance 500 Weight 83.55 kg - Lochia Lochia Amount: Scant < 10 ml Lochia Color: Rubra/Red - Abdomen Description: Tender, Soft Hernia Present: No Fundal Description: Firm, Midline Fundal Height: u/u - u/2 Objective-Diagnostic Laboratory: 06/19/16 07:00 06/18/16 06/18/16 06/18/16 11:30 14:20 14:20 WBC 13.6 H RBC 5.07 Hgb 13.7 Hct 41.3 MCV 81 MCH 27.0 MCHC 33.1 RDW 16.4 H Plt Count 220 Seg Neutrophils % 80.7 H Lymphocytes % 13.0 Monocytes % 5.5 Eosinophils % 0.4 Basophils % 0.4 Absolute Neutrophils 11.0 H Absolute Lymphocytes 1.8 Absolute Monocytes 0.7 Absolute Eosinophils 0.1 Absolute Basophils 0.1 Urine Color STRAW Urine Appearance CLEAR Urine pH 5.0 Ur Specific [place] 1.010 Urine Protein NEGATIVE Urine Glucose (UA) NEGATIVE Urine Ketones NEGATIVE Urine Blood NEGATIVE Urine Nitrite NEGATIVE Ur Leukocyte Esterase NEGATIVE Blood Type O POSITIVE Antibody Screen NEGATIVE 06/19/16 07:00 WBC 14.3 H RBC 4.01 Hgb 10.5 L D Hct 33.1 L MCV 83 MCH 26.3 L MCHC 31.8 L RDW 16.5 H Plt Count 183 Seg Neutrophils % Lymphocytes % Monocytes % Eosinophils % Basophils % Absolute Neutrophils Absolute Lymphocytes Absolute Monocytes Absolute Eosinophils Absolute Basophils Urine Color Urine Appearance Urine pH Ur Specific [place] Urine Protein Urine Glucose (UA) Urine Ketones Urine Blood Urine Nitrite Ur Leukocyte Esterase Blood Type Antibody Screen
[2016-06-19 16:25] LABS: URINE BARBITURATES SCREEN NEGATIVE; URINE METHADONE SCREEN NEGATIVE; URINE PHENCYCLIDINE SCREEN NEGATIVE
[2016-06-20] MEDS: IBUPROFEN 800 MG TABLET PO SCH (05:08)
--- NOTE | 2016-06-20 06:11 | L&D General Admission ---
General Admit Datetime Report Generated by CPN: 06/20/2016 06:00 INFORMATION Patient Age: 25 (04/24/2016 10:51:QS system process) EDC: 06/22/2016 00:00 (06/18/2016 12:06:Carol Milian RN) : 3 (06/18/2016 12:06:Carol Milian RN) Para: 1 (06/18/2016 12:06:Carol Milian RN) Term: 1 (06/18/2016 12:06:SELWYN Rojas) : 0 (06/18/2016 12:06:SELWYN Rojas) Spontaneous Abortions: 0 (06/18/2016 12:06:SELWYN Rojas) Induced Abortions: 0 (06/18/2016 12:06:SELWYN Rojas) Livin (06/18/2016 12:06:SELWYN Rojas) Cesareans: 0 (06/18/2016 12:06:SELWYN Rojas) VBACs: 0 (06/18/2016 12:06:SELWYN Rojas) Ectopic: 0 (06/18/2016 12:06:SELWYN Rojas) Multiple Births: 0 (06/18/2016 12:06:SELWYN Rojas) Baby, Number in Womb: 1 (06/18/2016 12:06:SELWYN Rojas) CARE Primary Contract Runner: [facility] (06/18/2016 12:06:Carol Milian RN) Adequate Care: Yes (06/18/2016 12:06:Carol Milian RN) Height (in): 61 (06/19/2016 08:46:QS system process) ALLERGIES Medication Allergy: No (06/18/2016 12:06:Carol Milian RN) Medication Allergies: No Known Allergies (06/18/2016) (06/18/2016 12:12:QS system process) Latex Allergy: No Latex Allergies (06/18/2016 12:06:Carol Milian RN) COMMUNICATION Primary Language: Paraguayan (06/18/2016 12:06:Carol Milian RN) DEMOGRAPHICS Address: [address] [place] [id number] (06/18/2016 11:41:QS system process) Zipcode: [address] (06/18/2016 11:41:QS system process) Home (06/18/2016 11:41:QS system process) N: [phone] (04/24/2016 10:51:QS system process) Next of Kin Name: ANIVAL GRANDA (04/24/2016 10:51:QS system process) Next of Kin (06/18/2016 11:41:QS system process) Next of Kin Relationship: [place] (04/24/2016 10:51:QS system process) Date of : 1990 (04/24/2016 10:51:QS system process) Marital Status: (04/24/2016 10:51:QS system process) Sex: Female (04/24/2016 10:51:QS system process) Race: Other (04/24/2016 10:51:QS system process) Ethnicity: or (04/24/2016 10:51:QS system process) Uatsdin: None (04/24/2016 10:51:QS system process) DRUG AND ALCOHOL USE Alcohol: No (06/18/2016 12:06:Carol Milian RN) Cigarettes: Never Smoker. [id number] (06/18/2016 12:06:Carol Milian RN) Marijuana: No (06/18/2016 12:06:Carol Milian RN) Cocaine: No (06/18/2016 12:06:Carol Milian RN) Other Illicit Drugs: No (06/18/2016 12:06:Carol Milian RN) VACCINE HISTORY Influenza Vaccine: Yes (06/18/2016 12:06:Carol Milian RN) Influenza Date: 03-27-16 (Annotations: Data stored by Glenys on behalf of user) (06/18/2016 12:06:Carol Milian RN) Tetanus Vaccine: Yes (06/18/2016 12:06:SELWYN Rojas) Tetanus Date: 03-27-16 (06/18/2016 12:06:SELWYN Rojas) Tdap Vaccine: Yes (06/18/2016 12:06:Carol Milian RN) Tdap Date: 03-27-16 (06/18/2016 12:06:Carol Milian RN) Tool Filer Hand: [facility] (06/18/2016 12:06:Carol Milian RN) Feeding Preference: Breast (06/18/2016 12:06:Carol Milian RN) Benefit of Breast Feed Discussed: Yes (06/18/2016 12:06:Carol Milian RN) Circumcision: No (06/18/2016 12:06:Carol Milian RN) Classes Attended: No (06/18/2016 12:06:Carol Milian RN) Tubal Ligation: No (06/18/2016 12:06:Carol Milian RN) Tubal Authorization Signed: N/A (06/18/2016 12:06:Carol Milian RN) Consent: N/A (06/18/2016 12:06:Carol Milian RN) Consent Signed: N/A (06/18/2016 12:06:Carol Milian RN) Pain Management Plans: Epidural (06/18/2016 12:06:Carol Milian RN) Support Person: Mario (06/18/2016 12:06:Carol Milian RN) Support Person Relationship: (06/18/2016 12:06:Carol Milian RN) Cultural/Spritual Practice: [facility] (06/18/2016 12:06:Carol Milian RN) Spir/Cult Dietary Needs: No (06/18/2016 12:06:Carol Milian RN) LIVING SITUATION/DISCHARGE PLAN Living Arrangements: [place] (06/18/2016 12:06:Carol Milian RN) Adequate Access to:: Electric; Heat; Refrigeration; Plumbing/Running water; Phone; Transportation (06/18/2016 12:06:Carol Milian RN) WIC Program: [facility] (06/18/2016 12:06:Carol Milian RN) Discharge [place] Construction Supervisor Person: Mario (06/18/2016 12:06:Carol Milian RN) Person to Help after Discharge: Mario (06/18/2016 12:06:Carol Milian RN) Currently Using Commun Resources: [facility] (06/18/2016 12:06:Carol Milian RN) Car Seat for Discharge: Yes (06/18/2016 12:06:Carol Milian RN) Adoption Requested: No (06/18/2016 12:06:Carol Milian RN) LABS Blood Type: O Positive (06/18/2016 12:06:Carol Milian RN) Antibody Screen: negative (06/18/2016 12:06:Carol Milian RN) Hemoglobin: 10.5 L (06/19/2016 07:00:QS system process) Hematocrit: 33.1 L (06/19/2016 07:00:QS system process) MCV: 83 (06/19/2016 07:00:QS system process) Group Beta Strep: negative (06/18/2016 12:06:Carol Milian RN) Chlamydia: Negative (06/18/2016 12:06:Carol Milian RN) RPR/VDRL: Nonreactive (06/18/2016 12:06:Carol Milian RN) Hepatitis B: Negative (06/18/2016 12:06:Carol Milian RN) Rubella: Immune (06/18/2016 12:06:Carol Milian RN) OB/PREVIOUS HISTORY History of Previous : No (06/18/2016 12:06:Carol Milian RN) History of Gestational Diabetes: No (06/18/2016 12:06:Carol Milian RN) History of PIH: No (06/18/2016 12:06:Carol Milian RN) History of Incompetent Cervix: No (06/18/2016 12:06:Carol Milian RN) History of Placenta Previa/Abrup: No (06/18/2016 12:06:Carol Milian RN) History of Macrosomia: No (06/18/2016 12:06:Carol Milian RN) History of IUGR: No (06/18/2016 12:06:Carol Milian RN) History of Hemorrhage: No (06/18/2016 12:06:Carol Milian RN) History of Loss/Stillborn: No (06/18/2016 12:06:Carol Milian RN) History of : No (06/18/2016 12:06:Carol Milian RN) History of D (Rh) Sensitization: No (06/18/2016 12:06:Carol Milian RN) History Recurrent Loss/Stillborn: No (06/18/2016 12:06:Carol Milian RN) History Depression/PP Depression: No (06/18/2016 12:06:Carol Milian RN) History of Uterine Anomaly/KATHERIN: No (06/18/2016 12:06:Carol Milian RN) History of Infertility: No (06/18/2016 12:06:Carol Milian RN) History of ART Treatment: No (06/18/2016 12:06:Carol Milian RN) History of KATHERIN: No (06/18/2016 12:06:Carol Milian RN) Comments Obstetrical History: G1: 2009 - vaginal, female 6#4oz G2: 2011 SAB G3: current (06/18/2016 12:06:Carol Milian RN) MEDICAL HISTORY Med Hx Diabetes: No (06/18/2016 12:06:Carol Milian RN) Med Hx Hypertension: No (06/18/2016 12:06:Carol Milian RN) Med Hx Heart Disease: No (06/18/2016 12:06:Carol Milian RN) Med Hx Autoimmune Disorder: No (06/18/2016 12:06:Carol Milian RN) Med Hx Kidney Disease/UTI: No (06/18/2016 12:06:Carol Milian RN) Med Hx Neurologic/Epilepsy: No (06/18/2016 12:06:Carol Milian RN) Med Hx Psychiatric Disorders: No (06/18/2016 12:06:Carol Milian RN) Med Hx Hepatitis/Liver Disease: No (06/18/2016 12:06:Carol Milian RN) Med Hx Varicosities/Phlebitis: No (06/18/2016 12:06:Carol Milian RN) Med Hx Thyroid Dysfunction: No (06/18/2016 12:06:Carol Milian RN) Med Hx Trauma/Violence: No (06/18/2016 12:06:Carol Milian RN) Med Hx Blood Transfusion: No (06/18/2016 12:06:Carol Milian RN) Med Hx Pulmonary (Asthma,TB): No (06/18/2016 12:06:Carol Milian RN) Med Hx Breast: No (06/18/2016 12:06:Carol Milian RN) Med Hx 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 Surgery: No (06/18/2016 12:06:Carol Milian RN) Med Hx Hospitalization/Surgery: No (06/18/2016 12:06:Carol Milian RN) Med Hx Anesthetic Complications: No (06/18/2016 12:06:Carol Milian RN) Med Hx Abnormal Pap Smear: No (06/18/2016 12:06:Carol Milian RN) Other Medical Diseases: No (06/18/2016 12:06:Carol Milian RN) Med Hx Significant Family Hx: No (06/18/2016 12:06:Carlo Milian RN) INFECTIOUS HISTORY Inf Hx Gonorrhea: No (06/18/2016 12:06:Carol Milian RN) Inf Hx Chlamydia: No (06/18/2016 12:06:Carol Milian RN) Inf Hx Syphilis: No (06/18/2016 12:06:Carol Milian RN) Inf Hx HIV/AIDS: No (06/18/2016 12:06:Carol Milian RN) Inf Hx Human Papilloma Virus: No (06/18/2016 12:06:Carol Milian RN) Inf Hx Pt/Partner Genital Herpes: No (06/18/2016 12:06:Carol Milian RN) Inf Hx Tuberculosis/Exposure: No (06/18/2016 12:06:Carol Milian RN) Inf Hx Hepatitis B,C: No (06/18/2016 12:06:Carol Milian RN) Inf Hx Rash or Viral Illness: No (06/18/2016 12:06:Carol Milian RN) GENETIC HISTORY Gen Hx Age >=35 at JUNIOR: No (06/18/2016 12:06:Carol Milian RN) Gen Hx Thalassemia: No (06/18/2016 12:06:Carol Milian RN) Gen Hx Congenital Heart Defect: No (06/18/2016 12:06:Carol Milian RN) Gen Hx Neural Tube Defect: No (06/18/2016 12:06:Carol Milian RN) Gen Hx Down's Syndrome: No (06/18/2016 12:06:Carol Milian RN) Gen Hx Aniceto-Sachs: No (06/18/2016 12:06:Carol Milian RN) Gen Hx Raeann: No (06/18/2016 12:06:Carol Milian RN) Gen Hx Familial Dysautonomia: No (06/18/2016 12:06:Carol Milian RN) Gen Hx Sickle Cell Disease/Trait: No (06/18/2016 12:06:Carol Milian RN) Gen Hx Hemophilia/Blood Disorder: No (06/18/2016 12:06:Carol Milian RN) Gen Hx Muscular Dystrophy: No (06/18/2016 12:06:Carol Milian RN) Gen Hx Cystic Fibrosis: No (06/18/2016 12:06:Carol Milian RN) Gen Hx [place] Chorea: No (06/18/2016 12:06:Carol Milian RN) Gen Hx Mental Retardation/Autism: No (06/18/2016 12:06:Carol Milian RN) Gen Hx Tested for Fragile X: No (06/18/2016 12:06:Carol Milian RN) Gen Hx Other Inher/Chromosomal: No (06/18/2016 12:06:Carol Milian RN) Gen Hx Maternal Metabolic DO: No (06/18/2016 12:06:Carol Milian RN) Gen Hx Pt Father or FOB Defect: No (06/18/2016 12:06:Carol Milian RN) Gen Hx Other Genetic History: No (06/18/2016 12:06:Carol Milian RN) Gen Hx Drugs/Meds since LMP: No (06/18/2016 12:06:Carol Milian RN)
[2016-06-20 08:12] VITALS: BP 116/61
[2016-06-20] MEDS: PRENATAL VITAMIN W-O CA NO5/FE FUMARATE/FA CAPSULE PO SCH (09:37)
[2016-06-20] MEDS: FAMOTIDINE 20 MG TABLET PO SCH (09:37)
[2016-06-20] MEDS: FERROUS SULFATE 325 MG TABLET PO SCH (09:37)
[2016-06-20] MEDS: SENNOSIDES/DOCUSATE 8.6-50 MG 1 EACH TABLET PO SCH (09:37)
[2016-06-20] MEDS: DOCUSATE SODIUM 100 MG CAPSULE PO SCH (09:38)
--- NOTE | 2016-06-20 10:03 | PDOC DISCHARGE SUMMARY ---
Discharge Summary-OB Discharge Date: 06/20/16 - Final Diagnosis (1) Vacuum extractor delivery, delivered Is this a current diagnosis for this admission?: Yes - Discharge Medication Home Medications: Pnv No.122/Iron/Folic Acid [ Multi Tablet] 1 each PO DAILY 06/18/16 Reason(s) for Admission: Onset of Labor Procedures: NST Intrapartum Procedure(s): Vacuum Extraction Complication(s): Laceration-Perineal Laceration-Degree: 2nd - Diagnosis Test Laboratory: Temp Pulse Resp BP Pulse Ox 97.8 F 76 15 116/61 100 06/20/16 08:39 06/20/16 08:39 06/20/16 08:39 06/20/16 08:39 06/20/16 08:39 06/18/16 06/18/16 06/19/16 11:30 14:20 07:00 RBC 5.07 4.01 Hgb 13.7 10.5 L D Hct 41.3 33.1 L Urine Opiates Screen NEGATIVE - Discharge information/Instructions Discharge Activity: Activity As Tolerated, Pelvic Rest, No tub bath Discharge Diet: Regular Disposition: HOME, SELF-CARE Follow up with: [facility] in: 4, Weeks
[2016-06-20] MEDS: ACETAMINOPHEN WITH CODEINE #3 TABLET PO PRN (11:46)
--- NOTE | 2016-06-21 06:11 | L&D Current Admission ---
Current Admit Datetime Report Generated by N: 06/21/2016 06:00 ADMISSION INFORMATION Current Admit Date/Time: 06/18/2016 14:00 (06/18/2016 14:21:Carol Milian RN) Reason for Admission: Onset of Labor (06/18/2016 14:21:Carol Milian RN) Chief Complaint: Contractions (06/18/2016 12:00:Carol Milian RN) EGA per Dates: 39.3 (06/18/2016 14:21:QS system process) Method of Arrival: Ambulatory (06/18/2016 14:21:Carol Milian RN) Admitted From: Home (06/18/2016 14:21:Carol Milian RN) Reason for Induction: Not Applicable (06/18/2016 14:21:Carol Milian RN) Records Available: Yes (06/18/2016 14:21:Carol Milian RN) General Admission Information: Reviewed; Updated; Confirmed (06/18/2016 14:21:Carol Milian RN) General Admission Reviewed By: Doug Milian RN (06/18/2016 14:21:Carol Milian RN) BELONGINGS/ADVANCED DIRECTIVES Valuables/Personal Effects: Purse/Wallet; Cell Phone (06/18/2016 14:21:Carol Milian RN) Disposition of Belongings: Kept with Patient (06/18/2016 14:21:Carol Milian RN) Advance Direct for Healthcare: No, and Wants No Information (06/18/2016 14:21:Carol Milian RN) Durable Power of Teacher Of The Emotionally Disturbed: No (06/18/2016 14:21:Carol Milian RN) Living Will: No (06/18/2016 14:21:Carol Milian RN) Organ Donor: No (06/18/2016 14:21:Carol Milian RN) Pt Rights Information Given: Yes (06/18/2016 14:21:Carol Milian RN) Pt Understands Pt Rights: Yes (06/18/2016 14:21:Carol Milian RN) LEARNING ASSESSMENT Knowledge Level: Understands L_D Process (06/18/2016 14:21:Carol Milian RN) Barriers to Learning: None (06/18/2016 14:21:Carol Milian RN) Learning Readiness: Motivated (06/18/2016 14:21:Carol Milian RN) Learns Best By: 1 to 1 Instruction (06/18/2016 14:21:Carol Milian RN) Learning Needs: Labor and Delivery Process; Pain Management; Symptoms to Report; Treatment Plan (06/18/2016 14:21:Carol Milian RN) DOMESTIC VIOLANCE SCREENING Dom Viol Threatened/Hurt: No (06/18/2016 14:21:Carol Milian RN) Hx of Abuse/Neglect past 2yrs: No (06/18/2016 14:21:Carol Milian RN) Feel Unsafe Going Home: No (06/18/2016 14:21:Carol Milian RN) Addt'l Observ Indicating Abuse: No (06/18/2016 14:21:Carol Milian RN) Reason Unable to Complete Screen: N/A, Screen Completed (06/18/2016 14:21:Carol Milian RN) Considered Personal Harm/Suicide: No (06/18/2016 14:21:Carol Milian RN) NUTRITIONAL/FUNCTIONAL SCREENING Problem with Appetite >5 Days: No (06/18/2016 14:21:Carol Milian RN) Chew/Swallow Difficulties: No (06/18/2016 14:21:Carol Milian RN) Inappropriate Wt Gain/Loss: No (06/18/2016 14:21:Carol Milian RN) Presence Skin Breakdown/Ulcer: No (06/18/2016 14:21:Carol Milian RN) Special Diet: No (06/18/2016 14:21:Carol Milian RN) Pt Requests Title Specialist Visit: No (06/18/2016 14:21:Carol Milian RN) Hx of Any of the Following?: N/A (06/18/2016 14:21:Carol Milian RN) New Diagnosis of: N/A (06/18/2016 14:21:Carol Milian RN) Requires Assist w/Ambulation: No (06/18/2016 14:21:Carol Milian RN) Uses Assist Device to Ambulate: No (06/18/2016 14:21:Carol Milian RN) Pt Requires Help w/ADL's: No (06/18/2016 14:21:Carol Milian RN)
--- NOTE | 2016-06-21 06:11 | L&D General Admission ---
General Admit Datetime Report Generated by CPN: 06/21/2016 06:00 INFORMATION Patient Age: 25 (04/24/2016 10:51:QS system process) EDC: 06/22/2016 00:00 (06/18/2016 12:06:Carol Milian RN) : 3 (06/18/2016 12:06:Carol Milian RN) Para: 1 (06/18/2016 12:06:Carol Milian RN) Term: 1 (06/18/2016 12:06:SELWYN Rojas) : 0 (06/18/2016 12:06:SELWYN Rojas) Spontaneous Abortions: 0 (06/18/2016 12:06:SELWYN Rojas) Induced Abortions: 0 (06/18/2016 12:06:SELWYN Rojas) Livin (06/18/2016 12:06:SELWYN Rojas) Cesareans: 0 (06/18/2016 12:06:SELWYN Rojas) VBACs: 0 (06/18/2016 12:06:SELWYN Rojas) Ectopic: 0 (06/18/2016 12:06:SELWYN Rojas) Multiple Births: 0 (06/18/2016 12:06:SELWYN Rojas) Baby, Number in Womb: 1 (06/18/2016 12:06:SELWYN Rojas) CARE Primary Logistics Planning Engineer: [facility] (06/18/2016 12:06:Carol Milian RN) Adequate Care: Yes (06/18/2016 12:06:Carol Milian RN) Height (in): 61 (06/20/2016 10:03:QS system process) ALLERGIES Medication Allergy: No (06/18/2016 12:06:Carol Milian RN) Medication Allergies: No Known Allergies (06/18/2016) (06/18/2016 12:12:QS system process) Latex Allergy: No Latex Allergies (06/18/2016 12:06:Carol Milian RN) COMMUNICATION Primary Language: Mosotho (06/18/2016 12:06:Carol Milian RN) DEMOGRAPHICS Address: [address] [place] [phone] (06/18/2016 11:41:QS system process) Zipcode: [address] (06/18/2016 11:41:QS system process) Home (06/18/2016 11:41:QS system process) N: [phone] (04/24/2016 10:51:QS system process) Next of Kin Name: ANIVAL GRANDA (04/24/2016 10:51:QS system process) Next of Kin (06/18/2016 11:41:QS system process) Next of Kin Relationship: [place] (04/24/2016 10:51:QS system process) Date of : 1990 (04/24/2016 10:51:QS system process) Marital Status: (04/24/2016 10:51:QS system process) Sex: Female (04/24/2016 10:51:QS system process) Race: Other (04/24/2016 10:51:QS system process) Ethnicity: or (04/24/2016 10:51:QS system process) Religious: None (04/24/2016 10:51:QS system process) DRUG AND ALCOHOL USE Alcohol: No (06/18/2016 12:06:Carol Milian RN) Cigarettes: Never Smoker. [id number] (06/18/2016 12:06:Carol Milian RN) Marijuana: No (06/18/2016 12:06:Carol Milian RN) Cocaine: No (06/18/2016 12:06:Carol Milian RN) Other Illicit Drugs: No (06/18/2016 12:06:Carol Milian RN) VACCINE HISTORY Influenza Vaccine: Yes (06/18/2016 12:06:Carol Milian RN) Influenza Date: 03-27-16 (Annotations: Data stored by [employer]ys on behalf of user) (06/18/2016 12:06:Carol Milian RN) Tetanus Vaccine: Yes (06/18/2016 12:06:SELWYN Rojas) Tetanus Date: 03-27-16 (06/18/2016 12:06:SELWYN Rojas) Tdap Vaccine: Yes (06/18/2016 12:06:Carol Milian RN) Tdap Date: 03-27-16 (06/18/2016 12:06:Carol Milian RN) Assistant Teaching Professor: [facility] (06/18/2016 12:06:Carol Milian RN) Feeding Preference: Breast (06/18/2016 12:06:Carol Milian RN) Benefit of Breast Feed Discussed: Yes (06/18/2016 12:06:Carol Milian RN) Circumcision: No (06/18/2016 12:06:Carol Milian RN) Classes Attended: No (06/18/2016 12:06:Carol Milian RN) Tubal Ligation: No (06/18/2016 12:06:Carol Milian RN) Tubal Authorization Signed: N/A (06/18/2016 12:06:Carol Milian RN) Consent: N/A (06/18/2016 12:06:Carol Milian RN) Consent Signed: N/A (06/18/2016 12:06:Carol Milian RN) Pain Management Plans: Epidural (06/18/2016 12:06:Carol Milian RN) Support Person: Mario (06/18/2016 12:06:Carol Milian RN) Support Person Relationship: (06/18/2016 12:06:Carol Milian RN) Cultural/Spritual Practice: [facility] (06/18/2016 12:06:Carol Milian RN) Spir/Cult Dietary Needs: No (06/18/2016 12:06:Carol Milian RN) LIVING SITUATION/DISCHARGE PLAN Living Arrangements: [place] (06/18/2016 12:06:Carol Milian RN) Adequate Access to:: Electric; Heat; Refrigeration; Plumbing/Running water; Phone; Transportation (06/18/2016 12:06:Carol Milian RN) WIC Program: [facility] (06/18/2016 12:06:Carol Milian RN) Discharge Plant Worker Person: Mario (06/18/2016 12:06:Carol Milian RN) Person to Help after Discharge: Mario (06/18/2016 12:06:Carol Milian RN) Currently Using Commun Resources: [facility] (06/18/2016 12:06:Carol Milian RN) Car Seat for Discharge: Yes (06/18/2016 12:06:Carol Milian RN) Adoption Requested: No (06/18/2016 12:06:Carol Milian RN) LABS Blood Type: O Positive (06/18/2016 12:06:Carol Milian RN) Antibody Screen: negative (06/18/2016 12:06:Carol Milian RN) Hemoglobin: 10.5 L (06/19/2016 07:00:QS system process) Hematocrit: 33.1 L (06/19/2016 07:00:QS system process) MCV: 83 (06/19/2016 07:00:QS system process) Group Beta Strep: negative (06/18/2016 12:06:Carol Milian RN) Chlamydia: Negative (06/18/2016 12:06:Carol Milian RN) RPR/VDRL: Nonreactive (06/18/2016 12:06:Carol Milian RN) Hepatitis B: Negative (06/18/2016 12:06:Carol Milian RN) Rubella: Immune (06/18/2016 12:06:Carol Milian RN) OB/PREVIOUS HISTORY History of Previous : No (06/18/2016 12:06:Carol Miilan RN) History of Gestational Diabetes: No (06/18/2016 12:06:Carol Milian RN) History of PIH: No (06/18/2016 12:06:Carol Milian RN) History of Incompetent Cervix: No (06/18/2016 12:06:Carol Milian RN) History of Placenta Previa/Abrup: No (06/18/2016 12:06:Carol Milina RN) History of Macrosomia: No (06/18/2016 12:06:Carol Milian RN) History of IUGR: No (06/18/2016 12:06:Carol Milian RN) History of Hemorrhage: No (06/18/2016 12:06:Carol Milian RN) History of Loss/Stillborn: No (06/18/2016 12:06:Carol Milian RN) History of : No (06/18/2016 12:06:Carol Milian RN) History of D (Rh) Sensitization: No (06/18/2016 12:06:Carol Milian RN) History Recurrent Loss/Stillborn: No (06/18/2016 12:06:Carol Milian RN) History Depression/PP Depression: No (06/18/2016 12:06:Carol Milian RN) History of Uterine Anomaly/KATHERIN: No (06/18/2016 12:06:Carol Milian RN) History of Infertility: No (06/18/2016 12:06:Carol Milian RN) History of ART Treatment: No (06/18/2016 12:06:Carol Milian RN) History of KATHERIN: No (06/18/2016 12:06:Carol Milian RN) Comments Obstetrical History: G1: 2009 - vaginal, female 6#4oz G2: 2011 SAB G3: current (06/18/2016 12:06:Carol Milian RN) MEDICAL HISTORY Med Hx Diabetes: No (06/18/2016 12:06:Carol Milian RN) Med Hx Hypertension: No (06/18/2016 12:06:Carol Milian RN) Med Hx Heart Disease: No (06/18/2016 12:06:Carol Milian RN) Med Hx Autoimmune Disorder: No (06/18/2016 12:06:Carol Milian RN) Med Hx Kidney Disease/UTI: No (06/18/2016 12:06:Carol Milian RN) Med Hx Neurologic/Epilepsy: No (06/18/2016 12:06:Carol Milian RN) Med Hx Psychiatric Disorders: No (06/18/2016 12:06:Carol Milian RN) Med Hx Hepatitis/Liver Disease: No (06/18/2016 12:06:Carol Milian RN) Med Hx Varicosities/Phlebitis: No (06/18/2016 12:06:Carol Milian RN) Med Hx Thyroid Dysfunction: No (06/18/2016 12:06:Carol Milian RN) Med Hx Trauma/Violence: No (06/18/2016 12:06:Carol Milian RN) Med Hx Blood Transfusion: No (06/18/2016 12:06:Carol Milian RN) Med Hx Pulmonary (Asthma,TB): No (06/18/2016 12:06:Carol Milian RN) Med Hx Breast: No (06/18/2016 12:06:Carol Milian RN) Med Hx MASTER LAY OUT SPECIALIST Surgery: No (06/18/2016 12:06:Carol Milian RN) Med Hx Hospitalization/Surgery: No (06/18/2016 12:06:Carol Milian RN) Med Hx Anesthetic Complications: No (06/18/2016 12:06:Carol Milian RN) Med Hx Abnormal Pap Smear: No (06/18/2016 12:06:Carol Milian RN) Other Medical Diseases: No (06/18/2016 12:06:Carol Milian RN) Med Hx Significant Family Hx: No (06/18/2016 12:06:Carol Milian RN) INFECTIOUS HISTORY Inf Hx Gonorrhea: No (06/18/2016 12:06:Carol Milian RN) Inf Hx Chlamydia: No (06/18/2016 12:06:Carol Milian RN) Inf Hx Syphilis: No (06/18/2016 12:06:Carol Milian RN) Inf Hx HIV/AIDS: No (06/18/2016 12:06:Carol Milian RN) Inf Hx Human Papilloma Virus: No (06/18/2016 12:06:Carol Milian RN) Inf Hx Pt/Partner Genital Herpes: No (06/18/2016 12:06:Carol Milian RN) Inf Hx Tuberculosis/Exposure: No (06/18/2016 12:06:Carol Milian RN) Inf Hx Hepatitis B,C: No (06/18/2016 12:06:Carol Mliian RN) Inf Hx Rash or Viral Illness: No (06/18/2016 12:06:Carol Milian RN) GENETIC HISTORY Gen Hx Age >=35 at JUNIOR: No (06/18/2016 12:06:Carol Milian RN) Gen Hx Thalassemia: No (06/18/2016 12:06:Carol Milian RN) Gen Hx Congenital Heart Defect: No (06/18/2016 12:06:Carol Milian RN) Gen Hx Neural Tube Defect: No (06/18/2016 12:06:Carol Milian RN) Gen Hx Down's Syndrome: No (06/18/2016 12:06:Carol Milian RN) Gen Hx Aniceto-Sachs: No (06/18/2016 12:06:Carol Milian RN) Gen Hx Raeann: No (06/18/2016 12:06:Carol Milian RN) Gen Hx Familial Dysautonomia: No (06/18/2016 12:06:Carol Milian RN) Gen Hx Sickle Cell Disease/Trait: No (06/18/2016 12:06:Carol Milian RN) Gen Hx Hemophilia/Blood Disorder: No (06/18/2016 12:06:Carol Milian RN) Gen Hx Muscular Dystrophy: No (06/18/2016 12:06:Carol Milian RN) Gen Hx Cystic Fibrosis: No (06/18/2016 12:06:Carol Milian RN) Gen Hx Huntingtons Chorea: No (06/18/2016 12:06:Carol Milian RN) Gen Hx Mental Retardation/Autism: No (06/18/2016 12:06:Carol Milian RN) Gen Hx Tested for Fragile X: No (06/18/2016 12:06:Carol Milian RN) Gen Hx Other Inher/Chromosomal: No (06/18/2016 12:06:Carol Milian RN) Gen Hx Maternal Metabolic DO: No (06/18/2016 12:06:Carol Milian RN) Gen Hx Pt Father or FOB Defect: No (06/18/2016 12:06:Carol Milian RN) Gen Hx Other Genetic History: No (06/18/2016 12:06:Carol Milian RN) Gen Hx Drugs/Meds since LMP: No (06/18/2016 12:06:Carol Milian RN)
--- NOTE | 2016-06-22 06:11 | L&D General Admission ---
General Admit Datetime Report Generated by CPN: 06/22/2016 06:00 INFORMATION Patient Age: 25 (04/24/2016 10:51:QS system process) EDC: 06/22/2016 00:00 (06/18/2016 12:06:Carol Milian RN) : 3 (06/18/2016 12:06:Carol Milian RN) Para: 1 (06/18/2016 12:06:Carol Milian RN) Term: 1 (06/18/2016 12:06:SELWYN Rojas) : 0 (06/18/2016 12:06:SELWYN Rojas) Spontaneous Abortions: 0 (06/18/2016 12:06:SELWYN Rojas) Induced Abortions: 0 (06/18/2016 12:06:SELWYN Rojas) Livin (06/18/2016 12:06:SELWYN Rojas) Cesareans: 0 (06/18/2016 12:06:SELWYN Rojas) VBACs: 0 (06/18/2016 12:06:SELWYN Rojas) Ectopic: 0 (06/18/2016 12:06:SELWYN Rojas) Multiple Births: 0 (06/18/2016 12:06:SELWYN Rojas) Baby, Number in Womb: 1 (06/18/2016 12:06:SELWYN Rojas) CARE Primary Senior Sales Engineer: [email or web address] (06/18/2016 12:06:Carol Milian RN) Adequate Care: Yes (06/18/2016 12:06:Carol Milian RN) Height (in): 61 (06/20/2016 10:03:QS system process) ALLERGIES Medication Allergy: No (06/18/2016 12:06:Carol Milian RN) Medication Allergies: No Known Allergies (06/18/2016) (06/18/2016 12:12:QS system process) Latex Allergy: No Latex Allergies (06/18/2016 12:06:Carol Milian RN) COMMUNICATION Primary Language: Finnish (06/18/2016 12:06:Carol Milian RN) DEMOGRAPHICS Address: [address] [place] [id number] (06/18/2016 11:41:QS system process) Zipcode: [address] (06/18/2016 11:41:QS system process) Home (06/18/2016 11:41:QS system process) N: [phone] (04/24/2016 10:51:QS system process) Next of Kin Name: ANIVAL GRANDA (04/24/2016 10:51:QS system process) Next of Kin (06/18/2016 11:41:QS system process) Next of Kin Relationship: MO (04/24/2016 10:51:QS system process) Date of : 1990 (04/24/2016 10:51:QS system process) Marital Status: (04/24/2016 10:51:QS system process) Sex: Female (04/24/2016 10:51:QS system process) Race: Other (04/24/2016 10:51:QS system process) Ethnicity: or (04/24/2016 10:51:QS system process) Catholic: None (04/24/2016 10:51:QS system process) DRUG AND ALCOHOL USE Alcohol: No (06/18/2016 12:06:Carol Milian RN) Cigarettes: Never Smoker. [id number] (06/18/2016 12:06:Carol Milian RN) Marijuana: No (06/18/2016 12:06:Carol Milian RN) Cocaine: No (06/18/2016 12:06:Carol Milian RN) Other Illicit Drugs: No (06/18/2016 12:06:Carol Milian RN) VACCINE HISTORY Influenza Vaccine: Yes (06/18/2016 12:06:Carol Milian RN) Influenza Date: 03-27-16 (Annotations: Data stored by [employer] on behalf of user) (06/18/2016 12:06:Carol Milian RN) Tetanus Vaccine: Yes (06/18/2016 12:06:SELWYN Rojas) Tetanus Date: 03-27-16 (06/18/2016 12:06:SELWYN Rojas) Tdap Vaccine: Yes (06/18/2016 12:06:Carol Milian RN) Tdap Date: 03-27-16 (06/18/2016 12:06:Carol Milian RN) Lobby Concierge: [facility] (06/18/2016 12:06:Carol Milian RN) Feeding Preference: Breast (06/18/2016 12:06:Carol Milian RN) Benefit of Breast Feed Discussed: Yes (06/18/2016 12:06:Carol Milian RN) Circumcision: No (06/18/2016 12:06:Carol Milian RN) Classes Attended: No (06/18/2016 12:06:Carol Milian RN) Tubal Ligation: No (06/18/2016 12:06:Carol Milian RN) Tubal Authorization Signed: N/A (06/18/2016 12:06:Carol Milian RN) Consent: N/A (06/18/2016 12:06:Carol Milian RN) Consent Signed: N/A (06/18/2016 12:06:Carol Milian RN) Pain Management Plans: Epidural (06/18/2016 12:06:Carol Milian RN) Support Person: Mario (06/18/2016 12:06:Carol Milian RN) Support Person Relationship: (06/18/2016 12:06:Carol Milian RN) Cultural/Spritual Practice: Faina (06/18/2016 12:06:Carol Milian RN) Spir/Cult Dietary Needs: No (06/18/2016 12:06:Carol Milian RN) LIVING SITUATION/DISCHARGE PLAN Living Arrangements: [place] (06/18/2016 12:06:Carol Milian RN) Adequate Access to:: Electric; Heat; Refrigeration; Plumbing/Running water; Phone; Transportation (06/18/2016 12:06:Carol Milian RN) WIC Program: [place] (06/18/2016 12:06:Carol Milian RN) Discharge Rough Rounder Machine Person: Mario (06/18/2016 12:06:Carol Milian RN) Person to Help after Discharge: Mario (06/18/2016 12:06:Carol Milian RN) Currently Using Commun Resources: [place] (06/18/2016 12:06:Carol Milian RN) Car Seat for Discharge: Yes (06/18/2016 12:06:Carol Milian RN) Adoption Requested: No (06/18/2016 12:06:Carol Milian RN) LABS Blood Type: O Positive (06/18/2016 12:06:Carol Milian RN) Antibody Screen: negative (06/18/2016 12:06:Carol Milian RN) Hemoglobin: 10.5 L (06/19/2016 07:00:QS system process) Hematocrit: 33.1 L (06/19/2016 07:00:QS system process) MCV: 83 (06/19/2016 07:00:QS system process) Group Beta Strep: negative (06/18/2016 12:06:Carol Milian RN) Chlamydia: Negative (06/18/2016 12:06:Carol Milian RN) RPR/VDRL: Nonreactive (06/18/2016 12:06:Carol Milian RN) Hepatitis B: Negative (06/18/2016 12:06:Carol Milian RN) Rubella: Immune (06/18/2016 12:06:Carol Milian RN) OB/PREVIOUS HISTORY History of Previous : No (06/18/2016 12:06:Carol Milian RN) History of Gestational Diabetes: No (06/18/2016 12:06:Carol Milian RN) History of PIH: No (06/18/2016 12:06:Carol Milian RN) History of Incompetent Cervix: No (06/18/2016 12:06:Carol Milian RN) History of Placenta Previa/Abrup: No (06/18/2016 12:06:Carol Milian RN) History of Macrosomia: No (06/18/2016 12:06:Carol Milian RN) History of IUGR: No (06/18/2016 12:06:Carol Milian RN) History of Hemorrhage: No (06/18/2016 12:06:Carol Milian RN) History of Loss/Stillborn: No (06/18/2016 12:06:Carol Milian RN) History of : No (06/18/2016 12:06:Carol Milian RN) History of D (Rh) Sensitization: No (06/18/2016 12:06:Carol Milian RN) History Recurrent Loss/Stillborn: No (06/18/2016 12:06:Carol Milian RN) History Depression/PP Depression: No (06/18/2016 12:06:Carol Milian RN) History of Uterine Anomaly/KATHERIN: No (06/18/2016 12:06:Carol Milian RN) History of Infertility: No (06/18/2016 12:06:Carol Milian RN) History of ART Treatment: No (06/18/2016 12:06:Carol Milian RN) History of KATHERIN: No (06/18/2016 12:06:Carol Milian RN) Comments Obstetrical History: G1: 2009 - vaginal, female 6#4oz G2: 2011 SAB G3: current (06/18/2016 12:06:Carol Milian RN) MEDICAL HISTORY Med Hx Diabetes: No (06/18/2016 12:06:Carol Milian RN) Med Hx Hypertension: No (06/18/2016 12:06:Carol Milian RN) Med Hx Heart Disease: No (06/18/2016 12:06:Carol Milian RN) Med Hx Autoimmune Disorder: No (06/18/2016 12:06:Carol Milian RN) Med Hx Kidney Disease/UTI: No (06/18/2016 12:06:Carol Milian RN) Med Hx Neurologic/Epilepsy: No (06/18/2016 12:06:Carol Milian RN) Med Hx Psychiatric Disorders: No (06/18/2016 12:06:Carol Milian RN) Med Hx Hepatitis/Liver Disease: No (06/18/2016 12:06:Carol Milian RN) Med Hx Varicosities/Phlebitis: No (06/18/2016 12:06:Carol Milian RN) Med Hx Thyroid Dysfunction: No (06/18/2016 12:06:Carol Milian RN) Med Hx Trauma/Violence: No (06/18/2016 12:06:Carol Milian RN) Med Hx Blood Transfusion: No (06/18/2016 12:06:Carol Milian RN) Med Hx Pulmonary (Asthma,TB): No (06/18/2016 12:06:Carol Milian RN) Med Hx Breast: No (06/18/2016 12:06:Carol Milian RN) Med Hx ULTRASOUND SUPERVISOR Surgery: No (06/18/2016 12:06:Carol Milian RN) Med Hx Hospitalization/Surgery: No (06/18/2016 12:06:Carol Milian RN) Med Hx Anesthetic Complications: No (06/18/2016 12:06:Carol Milian RN) Med Hx Abnormal Pap Smear: No (06/18/2016 12:06:Carol Milian RN) Other Medical Diseases: No (06/18/2016 12:06:Carol Milian RN) Med Hx Significant Family Hx: No (06/18/2016 12:06:Carol Milian RN) INFECTIOUS HISTORY Inf Hx Gonorrhea: No (06/18/2016 12:06:Carol Milian RN) Inf Hx Chlamydia: No (06/18/2016 12:06:Carol Milian RN) Inf Hx Syphilis: No (06/18/2016 12:06:Carol Milian RN) Inf Hx HIV/AIDS: No (06/18/2016 12:06:Carol Milian RN) Inf Hx Human Papilloma Virus: No (06/18/2016 12:06:Carol Milian RN) Inf Hx Pt/Partner Genital Herpes: No (06/18/2016 12:06:Carol Milian RN) Inf Hx Tuberculosis/Exposure: No (06/18/2016 12:06:Carol Milian RN) Inf Hx Hepatitis B,C: No (06/18/2016 12:06:Carol Milian RN) Inf Hx Rash or Viral Illness: No (06/18/2016 12:06:Carol Milian RN) GENETIC HISTORY Gen Hx Age >=35 at JUNIOR: No (06/18/2016 12:06:Carol Milian RN) Gen Hx Thalassemia: No (06/18/2016 12:06:Carol Milian RN) Gen Hx Congenital Heart Defect: No (06/18/2016 12:06:Carol Milian RN) Gen Hx Neural Tube Defect: No (06/18/2016 12:06:Carol Milian RN) Gen Hx Down's Syndrome: No (06/18/2016 12:06:Carol Milian RN) Gen Hx Aniceto-Sachs: No (06/18/2016 12:06:Carol Milian RN) Gen Hx Raeann: No (06/18/2016 12:06:Carol Milian RN) Gen Hx Familial Dysautonomia: No (06/18/2016 12:06:Carol Milian RN) Gen Hx Sickle Cell Disease/Trait: No (06/18/2016 12:06:Carol Milian RN) Gen Hx Hemophilia/Blood Disorder: No (06/18/2016 12:06:Carol Milian RN) Gen Hx Muscular Dystrophy: No (06/18/2016 12:06:Carol Milian RN) Gen Hx Cystic Fibrosis: No (06/18/2016 12:06:Carol Milian RN) Gen Hx [place] Chorea: No (06/18/2016 12:06:Carol Milian RN) Gen Hx Mental Retardation/Autism: No (06/18/2016 12:06:Carol Milian RN) Gen Hx Tested for Fragile X: No (06/18/2016 12:06:Carol Milian RN) Gen Hx Other Inher/Chromosomal: No (06/18/2016 12:06:Carol Milian RN) Gen Hx Maternal Metabolic DO: No (06/18/2016 12:06:Carol Milian RN) Gen Hx Pt Father or FOB Defect: No (06/18/2016 12:06:Carol Milian RN) Gen Hx Other Genetic History: No (06/18/2016 12:06:Carol Milian RN) Gen Hx Drugs/Meds since LMP: No (06/18/2016 12:06:Carol Milian RN)
--- NOTE | 2016-06-22 06:11 | L&D Current Admission ---
Current Admit Datetime Report Generated by [facility]: 06/22/2016 06:00 ADMISSION INFORMATION Current Admit Date/Time: 06/18/2016 14:00 (06/18/2016 14:21:Carol Milian RN) Reason for Admission: Onset of Labor (06/18/2016 14:21:Carol Milian RN) Chief Complaint: Contractions (06/18/2016 12:00:Carol Milian RN) EGA per Dates: 39.3 (06/18/2016 14:21:QS system process) Method of Arrival: Ambulatory (06/18/2016 14:21:Carol Milian RN) Admitted From: Home (06/18/2016 14:21:Carol Milian RN) Reason for Induction: Not Applicable (06/18/2016 14:21:Carol Milian RN) Records Available: Yes (06/18/2016 14:21:Carol Milian RN) General Admission Information: Reviewed; Updated; Confirmed (06/18/2016 14:21:Carol Milian RN) General Admission Reviewed By: Doug Milian RN (06/18/2016 14:21:Carol Milian RN) BELONGINGS/ADVANCED DIRECTIVES Valuables/Personal Effects: Purse/Wallet; Cell Phone (06/18/2016 14:21:Carol Milian RN) Disposition of Belongings: Kept with Patient (06/18/2016 14:21:Carol Milian RN) Advance Direct for Healthcare: No, and Wants No Information (06/18/2016 14:21:Carol Milian RN) Durable Power of Incident Commander: No (06/18/2016 14:21:Carol Milian RN) Living Will: No (06/18/2016 14:21:Carol Milian RN) Organ Donor: No (06/18/2016 14:21:Carol Milian RN) Pt Rights Information Given: Yes (06/18/2016 14:21:Carol Milian RN) Pt Understands Pt Rights: Yes (06/18/2016 14:21:Carol Milian RN) LEARNING ASSESSMENT Knowledge Level: Understands L_D Process (06/18/2016 14:21:Carol Milian RN) Barriers to Learning: None (06/18/2016 14:21:Carol Milian RN) Learning Readiness: Motivated (06/18/2016 14:21:Carol Milian RN) Learns Best By: 1 to 1 Instruction (06/18/2016 14:21:Carol Milian RN) Learning Needs: Labor and Delivery Process; Pain Management; Symptoms to Report; Treatment Plan (06/18/2016 14:21:Carol Milian RN) DOMESTIC VIOLANCE SCREENING Dom Viol Threatened/Hurt: No (06/18/2016 14:21:Carol iMlian RN) Hx of Abuse/Neglect past 2yrs: No (06/18/2016 14:21:Carol Milian RN) Feel Unsafe Going Home: No (06/18/2016 14:21:Carol Milian RN) Addt'l Observ Indicating Abuse: No (06/18/2016 14:21:Carol Milian RN) Reason Unable to Complete Screen: N/A, Screen Completed (06/18/2016 14:21:Carol Milian RN) Considered Personal Harm/Suicide: No (06/18/2016 14:21:Carol Milian RN) NUTRITIONAL/FUNCTIONAL SCREENING Problem with Appetite >5 Days: No (06/18/2016 14:21:Carol Milian RN) Chew/Swallow Difficulties: No (06/18/2016 14:21:Carol Milian RN) Inappropriate Wt Gain/Loss: No (06/18/2016 14:21:Carol Milian RN) Presence Skin Breakdown/Ulcer: No (06/18/2016 14:21:Carol Milian RN) Special Diet: No (06/18/2016 14:21:Carol Milian RN) Pt Requests [employer] Science Teacher Visit: No (06/18/2016 14:21:Carol Milian RN) Hx of Any of the Following?: N/A (06/18/2016 14:21:Carol Milian RN) New Diagnosis of: N/A (06/18/2016 14:21:Carol Milian RN) Requires Assist w/Ambulation: No (06/18/2016 14:21:Carol Milian RN) Uses Assist Device to Ambulate: No (06/18/2016 14:21:Carol Milian RN) Pt Requires Help w/ADL's: No (06/18/2016 14:21:Carol Milian RN)
--- NOTE | 2016-06-23 06:13 | L&D General Admission ---
General Admit Datetime Report Generated by CPN: 06/23/2016 06:00 INFORMATION Patient Age: 25 (04/24/2016 10:51:QS system process) EDC: 06/22/2016 00:00 (06/18/2016 12:06:Carol Milian RN) : 3 (06/18/2016 12:06:Carol Milian RN) Para: 1 (06/18/2016 12:06:Carol Milian RN) Term: 1 (06/18/2016 12:06:SELWYN Rojas) : 0 (06/18/2016 12:06:SELWYN Rojas) Spontaneous Abortions: 0 (06/18/2016 12:06:SELWYN Rojas) Induced Abortions: 0 (06/18/2016 12:06:SELWYN Rojas) Livin (06/18/2016 12:06:SELWYN Rojas) Cesareans: 0 (06/18/2016 12:06:SELWYN Rojas) VBACs: 0 (06/18/2016 12:06:SELWYN Rojas) Ectopic: 0 (06/18/2016 12:06:SELWYN Rojas) Multiple Births: 0 (06/18/2016 12:06:SELWYN Rojas) Baby, Number in Womb: 1 (06/18/2016 12:06:SELWYN Rojas) CARE Primary Hospital Supervisor: [employer] (06/18/2016 12:06:Carol Milian RN) Adequate Care: Yes (06/18/2016 12:06:Carol Milian RN) Height (in): 61 (06/20/2016 10:03:QS system process) ALLERGIES Medication Allergy: No (06/18/2016 12:06:Carol Milian RN) Medication Allergies: No Known Allergies (06/18/2016) (06/18/2016 12:12:QS system process) Latex Allergy: No Latex Allergies (06/18/2016 12:06:Carol Milian RN) COMMUNICATION Primary Language: Belgian (06/18/2016 12:06:Carol Milian RN) DEMOGRAPHICS Address: [address] [place] [id number] (06/18/2016 11:41:QS system process) Zipcode: [address] (06/18/2016 11:41:QS system process) Home (06/18/2016 11:41:QS system process) N: [phone] (04/24/2016 10:51:QS system process) Next of Kin Name: ANIVAL GRANDA (04/24/2016 10:51:QS system process) Next of Kin (06/18/2016 11:41:QS system process) Next of Kin Relationship: [place] (04/24/2016 10:51:QS system process) Date of : 1990 (04/24/2016 10:51:QS system process) Marital Status: (04/24/2016 10:51:QS system process) Sex: Female (04/24/2016 10:51:QS system process) Race: Other (04/24/2016 10:51:QS system process) Ethnicity: or (04/24/2016 10:51:QS system process) Anabaptism: None (04/24/2016 10:51:QS system process) DRUG AND ALCOHOL USE Alcohol: No (06/18/2016 12:06:Carol Milian RN) Cigarettes: Never Smoker. [id number] (06/18/2016 12:06:Carol Milian RN) Marijuana: No (06/18/2016 12:06:Carol Milian RN) Cocaine: No (06/18/2016 12:06:Carol Milian RN) Other Illicit Drugs: No (06/18/2016 12:06:Carol Milian RN) VACCINE HISTORY Influenza Vaccine: Yes (06/18/2016 12:06:Carol Milian RN) Influenza Date: 03-27-16 (Annotations: Data stored by [employer] on behalf of user) (06/18/2016 12:06:Carol Milian RN) Tetanus Vaccine: Yes (06/18/2016 12:06:SELWYN Rojas) Tetanus Date: 03-27-16 (06/18/2016 12:06:SELWYN Rojas) Tdap Vaccine: Yes (06/18/2016 12:06:Carol Milian RN) Tdap Date: 03-27-16 (06/18/2016 12:06:Carol Milian RN) 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: [facility] (06/18/2016 12:06:Carol Milian RN) Feeding Preference: Breast (06/18/2016 12:06:Carol Milian RN) Benefit of Breast Feed Discussed: Yes (06/18/2016 12:06:Carol Milain RN) Circumcision: No (06/18/2016 12:06:Carol Milian RN) Classes Attended: No (06/18/2016 12:06:Carol Milian RN) Tubal Ligation: No (06/18/2016 12:06:Carol Milian RN) Tubal Authorization Signed: N/A (06/18/2016 12:06:Carol Milian RN) Consent: N/A (06/18/2016 12:06:Carol Milian RN) Consent Signed: N/A (06/18/2016 12:06:Carol Milian RN) Pain Management Plans: Epidural (06/18/2016 12:06:Carol Milian RN) Support Person: Mario (06/18/2016 12:06:Carol Milian RN) Support Person Relationship: (06/18/2016 12:06:Carol Milian RN) Cultural/Spritual Practice: [facility] (06/18/2016 12:06:Carol Milian RN) Spir/Cult Dietary Needs: No (06/18/2016 12:06:Carol Milian RN) LIVING SITUATION/DISCHARGE PLAN Living Arrangements: [place] (06/18/2016 12:06:Carol Milian RN) Adequate Access to:: Electric; Heat; Refrigeration; Plumbing/Running water; Phone; Transportation (06/18/2016 12:06:Carol Milian RN) WIC Program: [facility] (06/18/2016 12:06:Carol Milian RN) Discharge It Security Specialist Person: Mario (06/18/2016 12:06:Carol Milian RN) Person to Help after Discharge: Mario (06/18/2016 12:06:Carol Milian RN) Currently Using Commun Resources: [place] (06/18/2016 12:06:Carol Milian RN) Car Seat for Discharge: Yes (06/18/2016 12:06:Carol Milian RN) Adoption Requested: No (06/18/2016 12:06:Carol Milian RN) LABS Blood Type: O Positive (06/18/2016 12:06:Carol Milian RN) Antibody Screen: negative (06/18/2016 12:06:Carol Milian RN) Hemoglobin: 10.5 L (06/19/2016 07:00:QS system process) Hematocrit: 33.1 L (06/19/2016 07:00:QS system process) MCV: 83 (06/19/2016 07:00:QS system process) Group Beta Strep: negative (06/18/2016 12:06:Carol Milian RN) Chlamydia: Negative (06/18/2016 12:06:Carol Milian RN) RPR/VDRL: Nonreactive (06/18/2016 12:06:Carol Milian RN) Hepatitis B: Negative (06/18/2016 12:06:Carol Milian RN) Rubella: Immune (06/18/2016 12:06:Carol Milian RN) OB/PREVIOUS HISTORY History of Previous : No (06/18/2016 12:06:Carol Milian RN) History of Gestational Diabetes: No (06/18/2016 12:06:Carol Milian RN) History of PIH: No (06/18/2016 12:06:Carol Milian RN) History of Incompetent Cervix: No (06/18/2016 12:06:Carol Milian RN) History of Placenta Previa/Abrup: No (06/18/2016 12:06:Carol Milian RN) History of Macrosomia: No (06/18/2016 12:06:Carol Milian RN) History of IUGR: No (06/18/2016 12:06:Carol Milian RN) History of Hemorrhage: No (06/18/2016 12:06:Carol Milian RN) History of Loss/Stillborn: No (06/18/2016 12:06:Carol Milian RN) History of : No (06/18/2016 12:06:Carol Milian RN) History of D (Rh) Sensitization: No (06/18/2016 12:06:Carol Milian RN) History Recurrent Loss/Stillborn: No (06/18/2016 12:06:Carol Milian RN) History Depression/PP Depression: No (06/18/2016 12:06:Carol Milian RN) History of Uterine Anomaly/KATHERIN: No (06/18/2016 12:06:Carol Milian RN) History of Infertility: No (06/18/2016 12:06:Carol Milian RN) History of ART Treatment: No (06/18/2016 12:06:Carol Milian RN) History of KATHERIN: No (06/18/2016 12:06:Carol Milian RN) Comments Obstetrical History: G1: 2009 - vaginal, female 6#4oz G2: 2011 SAB G3: current (06/18/2016 12:06:Carol Milian RN) MEDICAL HISTORY Med Hx Diabetes: No (06/18/2016 12:06:Carol Milian RN) Med Hx Hypertension: No (06/18/2016 12:06:Carol Milian RN) Med Hx Heart Disease: No (06/18/2016 12:06:Carol Milian RN) Med Hx Autoimmune Disorder: No (06/18/2016 12:06:Carol Milian RN) Med Hx Kidney Disease/UTI: No (06/18/2016 12:06:Carol Milian RN) Med Hx Neurologic/Epilepsy: No (06/18/2016 12:06:Carol Milian RN) Med Hx Psychiatric Disorders: No (06/18/2016 12:06:Carol Milian RN) Med Hx Hepatitis/Liver Disease: No (06/18/2016 12:06:Carol Milian RN) Med Hx Varicosities/Phlebitis: No (06/18/2016 12:06:Carol Milian RN) Med Hx Thyroid Dysfunction: No (06/18/2016 12:06:Carol Milian RN) Med Hx Trauma/Violence: No (06/18/2016 12:06:Carol Milian RN) Med Hx Blood Transfusion: No (06/18/2016 12:06:Carol Milian RN) Med Hx Pulmonary (Asthma,TB): No (06/18/2016 12:06:Carol Milian RN) Med Hx Breast: No (06/18/2016 12:06:Carol Milian RN) Med Hx LAUNDRY WASHER Surgery: No (06/18/2016 12:06:Carol Milian RN) Med Hx Hospitalization/Surgery: No (06/18/2016 12:06:Carol Milian RN) Med Hx Anesthetic Complications: No (06/18/2016 12:06:Carol Milian RN) Med Hx Abnormal Pap Smear: No (06/18/2016 12:06:Carol Milian RN) Other Medical Diseases: No (06/18/2016 12:06:Carol Milian RN) Med Hx Significant Family Hx: No (06/18/2016 12:06:Carol Milian RN) INFECTIOUS HISTORY Inf Hx Gonorrhea: No (06/18/2016 12:06:Carol Milian RN) Inf Hx Chlamydia: No (06/18/2016 12:06:Carol Milian RN) Inf Hx Syphilis: No (06/18/2016 12:06:Carol Milian RN) Inf Hx HIV/AIDS: No (06/18/2016 12:06:Carol Milian RN) Inf Hx Human Papilloma Virus: No (06/18/2016 12:06:Carol Milian RN) Inf Hx Pt/Partner Genital Herpes: No (06/18/2016 12:06:Carol Milian RN) Inf Hx Tuberculosis/Exposure: No (06/18/2016 12:06:Carol Milian RN) Inf Hx Hepatitis B,C: No (06/18/2016 12:06:Carol Milian RN) Inf Hx Rash or Viral Illness: No (06/18/2016 12:06:Carol Milian RN) GENETIC HISTORY Gen Hx Age >=35 at JUNIOR: No (06/18/2016 12:06:Carol Milian RN) Gen Hx Thalassemia: No (06/18/2016 12:06:Carol Milian RN) Gen Hx Congenital Heart Defect: No (06/18/2016 12:06:Carol Milian RN) Gen Hx Neural Tube Defect: No (06/18/2016 12:06:Carol Milian RN) Gen Hx Down's Syndrome: No (06/18/2016 12:06:Carol Milian RN) Gen Hx Aniceto-Sachs: No (06/18/2016 12:06:Carol Milian RN) Gen Hx Raeann: No (06/18/2016 12:06:Carol Milian RN) Gen Hx Familial Dysautonomia: No (06/18/2016 12:06:Carol Milian RN) Gen Hx Sickle Cell Disease/Trait: No (06/18/2016 12:06:Carol Milian RN) Gen Hx Hemophilia/Blood Disorder: No (06/18/2016 12:06:Carol Milian RN) Gen Hx Muscular Dystrophy: No (06/18/2016 12:06:Carol Milian RN) Gen Hx Cystic Fibrosis: No (06/18/2016 12:06:Carol Milian RN) Gen Hx [place] Chorea: No (06/18/2016 12:06:Carol Milian RN) Gen Hx Mental Retardation/Autism: No (06/18/2016 12:06:Carol Milian RN) Gen Hx Tested for Fragile X: No (06/18/2016 12:06:Carol Milian RN) Gen Hx Other Inher/Chromosomal: No (06/18/2016 12:06:Carol Milian RN) Gen Hx Maternal Metabolic DO: No (06/18/2016 12:06:Carol Milian RN) Gen Hx Pt Father or FOB Defect: No (06/18/2016 12:06:Carol Milian RN) Gen Hx Other Genetic History: No (06/18/2016 12:06:Carol Milian RN) Gen Hx Drugs/Meds since LMP: No (06/18/2016 12:06:Carol Milian RN)
--- NOTE | 2016-06-23 06:13 | L&D Current Admission ---
Current Admit Datetime Report Generated by [facility]: 06/23/2016 06:00 ADMISSION INFORMATION Current Admit Date/Time: 06/18/2016 14:00 (06/18/2016 14:21:Carol Milian RN) Reason for Admission: Onset of Labor (06/18/2016 14:21:Carol Milian RN) Chief Complaint: Contractions (06/18/2016 12:00:Carol Milian RN) EGA per Dates: 39.3 (06/18/2016 14:21:QS system process) Method of Arrival: Ambulatory (06/18/2016 14:21:Carol Milian RN) Admitted From: Home (06/18/2016 14:21:Carol Milian RN) Reason for Induction: Not Applicable (06/18/2016 14:21:Carol Milian RN) Records Available: Yes (06/18/2016 14:21:Carol Milian RN) General Admission Information: Reviewed; Updated; Confirmed (06/18/2016 14:21:Carol Milian RN) General Admission Reviewed By: Doug Milian RN (06/18/2016 14:21:Carol Milian RN) BELONGINGS/ADVANCED DIRECTIVES Valuables/Personal Effects: Purse/Wallet; Cell Phone (06/18/2016 14:21:Carol Milian RN) Disposition of Belongings: Kept with Patient (06/18/2016 14:21:Carol Milian RN) Advance Direct for Healthcare: No, and Wants No Information (06/18/2016 14:21:Carol Milian RN) Durable Power of Movie Shot Camera Operator: No (06/18/2016 14:21:Carol Milian RN) Living Will: No (06/18/2016 14:21:Carol Milian RN) Organ Donor: No (06/18/2016 14:21:Carol Milian RN) Pt Rights Information Given: Yes (06/18/2016 14:21:Carol Milian RN) Pt Understands Pt Rights: Yes (06/18/2016 14:21:Carol Milian RN) LEARNING ASSESSMENT Knowledge Level: Understands L_D Process (06/18/2016 14:21:Carol Milian RN) Barriers to Learning: None (06/18/2016 14:21:Carol Milian RN) Learning Readiness: Motivated (06/18/2016 14:21:Carol Milian RN) Learns Best By: 1 to 1 Instruction (06/18/2016 14:21:Carol Milian RN) Learning Needs: Labor and Delivery Process; Pain Management; Symptoms to Report; Treatment Plan (06/18/2016 14:21:Carol Milian RN) DOMESTIC VIOLANCE SCREENING Dom Viol Threatened/Hurt: No (06/18/2016 14:21:Carol Milian RN) Hx of Abuse/Neglect past 2yrs: No (06/18/2016 14:21:Carol Milian RN) Feel Unsafe Going Home: No (06/18/2016 14:21:Carol Milian RN) Addt'l Observ Indicating Abuse: No (06/18/2016 14:21:Carol Milian RN) Reason Unable to Complete Screen: N/A, Screen Completed (06/18/2016 14:21:Carol Milian RN) Considered Personal Harm/Suicide: No (06/18/2016 14:21:Carol Milian RN) NUTRITIONAL/FUNCTIONAL SCREENING Problem with Appetite >5 Days: No (06/18/2016 14:21:Carol Milian RN) Chew/Swallow Difficulties: No (06/18/2016 14:21:Carol Milian RN) Inappropriate Wt Gain/Loss: No (06/18/2016 14:21:Carol Milian RN) Presence Skin Breakdown/Ulcer: No (06/18/2016 14:21:Carol Milian RN) Special Diet: No (06/18/2016 14:21:Carol Milian RN) Pt Requests Supervisor Reclamation Visit: No (06/18/2016 14:21:Carol Milian RN) Hx of Any of the Following?: N/A (06/18/2016 14:21:Carol Milian RN) New Diagnosis of: N/A (06/18/2016 14:21:Carol Milian RN) Requires Assist w/Ambulation: No (06/18/2016 14:21:Carol Milian RN) Uses Assist Device to Ambulate: No (06/18/2016 14:21:Carol Milian RN) Pt Requires Help w/ADL's: No (06/18/2016 14:21:Carol Milian RN)
--- NOTE | 2016-06-24 06:10 | L&D General Admission ---
General Admit Datetime Report Generated by CPN: 06/24/2016 06:00 INFORMATION Patient Age: 25 (04/24/2016 10:51:QS system process) EDC: 06/22/2016 00:00 (06/18/2016 12:06:Carol Milian RN) : 3 (06/18/2016 12:06:Carol Milian RN) Para: 1 (06/18/2016 12:06:Carol Milian RN) Term: 1 (06/18/2016 12:06:SELWYN Rojas) : 0 (06/18/2016 12:06:SELWYN Rojas) Spontaneous Abortions: 0 (06/18/2016 12:06:SELWYN Rojas) Induced Abortions: 0 (06/18/2016 12:06:SELWYN Rojas) Livin (06/18/2016 12:06:SELWYN Rojas) Cesareans: 0 (06/18/2016 12:06:SELWYN Rojas) VBACs: 0 (06/18/2016 12:06:SELWYN Rojas) Ectopic: 0 (06/18/2016 12:06:SELWYN Rojas) Multiple Births: 0 (06/18/2016 12:06:SELWYN Rojas) Baby, Number in Womb: 1 (06/18/2016 12:06:SELWYN Rojas) CARE Primary Machine Setter Automatic: [facility] (06/18/2016 12:06:Carol Milian RN) Adequate Care: Yes (06/18/2016 12:06:Carol Milian RN) Height (in): 61 (06/20/2016 10:03:QS system process) ALLERGIES Medication Allergy: No (06/18/2016 12:06:Carol Milian RN) Medication Allergies: No Known Allergies (06/18/2016) (06/18/2016 12:12:QS system process) Latex Allergy: No Latex Allergies (06/18/2016 12:06:Carol Milian RN) COMMUNICATION Primary Language: Maltese (06/18/2016 12:06:Carol Milian RN) DEMOGRAPHICS Address: [address] [place] [id number] (06/18/2016 11:41:QS system process) Zipcode: [address] (06/18/2016 11:41:QS system process) Home (06/18/2016 11:41:QS system process) N: [id number] (04/24/2016 10:51:QS system process) Next of Kin Name: ANIVAL GRANDA (04/24/2016 10:51:QS system process) Next of Kin (06/18/2016 11:41:QS system process) Next of Kin Relationship: MO (04/24/2016 10:51:QS system process) Date of : 1990 (04/24/2016 10:51:QS system process) Marital Status: (04/24/2016 10:51:QS system process) Sex: Female (04/24/2016 10:51:QS system process) Race: Other (04/24/2016 10:51:QS system process) Ethnicity: or (04/24/2016 10:51:QS system process) Baptist: None (04/24/2016 10:51:QS system process) DRUG AND ALCOHOL USE Alcohol: No (06/18/2016 12:06:Carol Milian RN) Cigarettes: Never Smoker. [id number] (06/18/2016 12:06:Carol Milian RN) Marijuana: No (06/18/2016 12:06:Carol Milian RN) Cocaine: No (06/18/2016 12:06:Carol Milian RN) Other Illicit Drugs: No (06/18/2016 12:06:Carol Milian RN) VACCINE HISTORY Influenza Vaccine: Yes (06/18/2016 12:06:Carol Milian RN) Influenza Date: 03-27-16 (Annotations: Data stored by [employer] on behalf of user) (06/18/2016 12:06:Carol Milian RN) Tetanus Vaccine: Yes (06/18/2016 12:06:SELWYN Rojas) Tetanus Date: 03-27-16 (06/18/2016 12:06:SELWYN Rojas) Tdap Vaccine: Yes (06/18/2016 12:06:Carol Milian RN) Tdap Date: 03-27-16 (06/18/2016 12:06:Carol Milian RN) Accreditation Coordinator: [facility] (06/18/2016 12:06:Carol Milian RN) Feeding Preference: Breast (06/18/2016 12:06:Carol Milian RN) Benefit of Breast Feed Discussed: Yes (06/18/2016 12:06:Carol Milian RN) Circumcision: No (06/18/2016 12:06:Carol Milian RN) Classes Attended: No (06/18/2016 12:06:Carol Milian RN) Tubal Ligation: No (06/18/2016 12:06:Carol Milian RN) Tubal Authorization Signed: N/A (06/18/2016 12:06:Carol Milian RN) Consent: N/A (06/18/2016 12:06:Carol Milian RN) Consent Signed: N/A (06/18/2016 12:06:Carol Milian RN) Pain Management Plans: Epidural (06/18/2016 12:06:Carol Milian RN) Support Person: Mario (06/18/2016 12:06:Carol Milian RN) Support Person Relationship: (06/18/2016 12:06:Carol Milian RN) Cultural/Spritual Practice: [facility] (06/18/2016 12:06:Carol Milian RN) Spir/Cult Dietary Needs: No (06/18/2016 12:06:Carol Miilan RN) LIVING SITUATION/DISCHARGE PLAN Living Arrangements: [place] (06/18/2016 12:06:Carol Milian RN) Adequate Access to:: Electric; Heat; Refrigeration; Plumbing/Running water; Phone; Transportation (06/18/2016 12:06:Carol Milian RN) WIC Program: [facility] (06/18/2016 12:06:Carol Milian RN) Discharge Respiratory Assistant Person: Mario (06/18/2016 12:06:Carol Milian RN) Person to Help after Discharge: Mario (06/18/2016 12:06:Carol Milian RN) Currently Using Commun Resources: [facility] (06/18/2016 12:06:Carol Milian RN) Car Seat for Discharge: Yes (06/18/2016 12:06:Carol Milian RN) Adoption Requested: No (06/18/2016 12:06:Carol Milian RN) LABS Blood Type: O Positive (06/18/2016 12:06:Carol Milian RN) Antibody Screen: negative (06/18/2016 12:06:Carol Milian RN) Hemoglobin: 10.5 L (06/19/2016 07:00:QS system process) Hematocrit: 33.1 L (06/19/2016 07:00:QS system process) MCV: 83 (06/19/2016 07:00:QS system process) Group Beta Strep: negative (06/18/2016 12:06:Carol Milian RN) Chlamydia: Negative (06/18/2016 12:06:Carol Milian RN) RPR/VDRL: Nonreactive (06/18/2016 12:06:Carol Milian RN) Hepatitis B: Negative (06/18/2016 12:06:Carol Milian RN) Rubella: Immune (06/18/2016 12:06:Carol Milian RN) OB/PREVIOUS HISTORY History of Previous : No (06/18/2016 12:06:Carol Milian RN) History of Gestational Diabetes: No (06/18/2016 12:06:Carol Milian RN) History of PIH: No (06/18/2016 12:06:Carol Milian RN) History of Incompetent Cervix: No (06/18/2016 12:06:Carol Milian RN) History of Placenta Previa/Abrup: No (06/18/2016 12:06:Carol Milian RN) History of Macrosomia: No (06/18/2016 12:06:Carol Milian RN) History of IUGR: No (06/18/2016 12:06:Carol Milian RN) History of Hemorrhage: No (06/18/2016 12:06:Carol Milian RN) History of Loss/Stillborn: No (06/18/2016 12:06:Carol Milian RN) History of : No (06/18/2016 12:06:Carol Milian RN) History of D (Rh) Sensitization: No (06/18/2016 12:06:Carol Milian RN) History Recurrent Loss/Stillborn: No (06/18/2016 12:06:Carol Milian RN) History Depression/PP Depression: No (06/18/2016 12:06:Carol Milian RN) History of Uterine Anomaly/KATHERIN: No (06/18/2016 12:06:Carol Milian RN) History of Infertility: No (06/18/2016 12:06:Carol Milian RN) History of ART Treatment: No (06/18/2016 12:06:Carol Milian RN) History of KATHERIN: No (06/18/2016 12:06:Carol Milian RN) Comments Obstetrical History: G1: 2009 - vaginal, female 6#4oz G2: 2011 SAB G3: current (06/18/2016 12:06:Carol Milian RN) MEDICAL HISTORY Med Hx Diabetes: No (06/18/2016 12:06:Carol Milian RN) Med Hx Hypertension: No (06/18/2016 12:06:Carol Milian RN) Med Hx Heart Disease: No (06/18/2016 12:06:Carol Milian RN) Med Hx Autoimmune Disorder: No (06/18/2016 12:06:Carol Milian RN) Med Hx Kidney Disease/UTI: No (06/18/2016 12:06:Carol Milian RN) Med Hx Neurologic/Epilepsy: No (06/18/2016 12:06:Carol Milian RN) Med Hx Psychiatric Disorders: No (06/18/2016 12:06:Carol Milian RN) Med Hx Hepatitis/Liver Disease: No (06/18/2016 12:06:Carol Milian RN) Med Hx Varicosities/Phlebitis: No (06/18/2016 12:06:Carol Milian RN) Med Hx Thyroid Dysfunction: No (06/18/2016 12:06:Carol Milian RN) Med Hx Trauma/Violence: No (06/18/2016 12:06:Carol Milian RN) Med Hx Blood Transfusion: No (06/18/2016 12:06:Carol Milian RN) Med Hx Pulmonary (Asthma,TB): No (06/18/2016 12:06:Carol Milian RN) Med Hx Breast: No (06/18/2016 12:06:Carol Milian RN) Med Hx BANANA CARRIER Surgery: No (06/18/2016 12:06:Carol Milian RN) Med Hx Hospitalization/Surgery: No (06/18/2016 12:06:Carol Milian RN) Med Hx Anesthetic Complications: No (06/18/2016 12:06:Carol Milian RN) Med Hx Abnormal Pap Smear: No (06/18/2016 12:06:Carol Milian RN) Other Medical Diseases: No (06/18/2016 12:06:Carol Milian RN) Med Hx Significant Family Hx: No (06/18/2016 12:06:Carol Milian RN) INFECTIOUS HISTORY Inf Hx Gonorrhea: No (06/18/2016 12:06:Carol Milian RN) Inf Hx Chlamydia: No (06/18/2016 12:06:Carol Milian RN) Inf Hx Syphilis: No (06/18/2016 12:06:Carol Milian RN) Inf Hx HIV/AIDS: No (06/18/2016 12:06:Carol Milian RN) Inf Hx Human Papilloma Virus: No (06/18/2016 12:06:Carol Milian RN) Inf Hx Pt/Partner Genital Herpes: No (06/18/2016 12:06:Carol Milian RN) Inf Hx Tuberculosis/Exposure: No (06/18/2016 12:06:Carol Milian RN) Inf Hx Hepatitis B,C: No (06/18/2016 12:06:Carol Milian RN) Inf Hx Rash or Viral Illness: No (06/18/2016 12:06:Carol Milian RN) GENETIC HISTORY Gen Hx Age >=35 at JUNIOR: No (06/18/2016 12:06:Carol Milian RN) Gen Hx Thalassemia: No (06/18/2016 12:06:Carol Milian RN) Gen Hx Congenital Heart Defect: No (06/18/2016 12:06:Carol Milian RN) Gen Hx Neural Tube Defect: No (06/18/2016 12:06:Carol Milian RN) Gen Hx Down's Syndrome: No (06/18/2016 12:06:Carol Milian RN) Gen Hx Aniceto-Sachs: No (06/18/2016 12:06:Carol Milian RN) Gen Hx Raeann: No (06/18/2016 12:06:Carol Milian RN) Gen Hx Familial Dysautonomia: No (06/18/2016 12:06:Carol Milian RN) Gen Hx Sickle Cell Disease/Trait: No (06/18/2016 12:06:Carol Milian RN) Gen Hx Hemophilia/Blood Disorder: No (06/18/2016 12:06:Carol Milian RN) Gen Hx Muscular Dystrophy: No (06/18/2016 12:06:Carol Milian RN) Gen Hx Cystic Fibrosis: No (06/18/2016 12:06:Carol Milian RN) Gen Hx [place] Chorea: No (06/18/2016 12:06:Carol Milian RN) Gen Hx Mental Retardation/Autism: No (06/18/2016 12:06:Carol Milian RN) Gen Hx Tested for Fragile X: No (06/18/2016 12:06:Carol Milian RN) Gen Hx Other Inher/Chromosomal: No (06/18/2016 12:06:Carol Milian RN) Gen Hx Maternal Metabolic DO: No (06/18/2016 12:06:Carol Milian RN) Gen Hx Pt Father or FOB Defect: No (06/18/2016 12:06:Carol Milian RN) Gen Hx Other Genetic History: No (06/18/2016 12:06:Carol Milian RN) Gen Hx Drugs/Meds since LMP: No (06/18/2016 12:06:Carol Milian RN)
--- NOTE | 2016-06-25 06:10 | L&D General Admission ---
General Admit Datetime Report Generated by CPN: 06/25/2016 06:00 INFORMATION Patient Age: 25 (04/24/2016 10:51:QS system process) EDC: 06/22/2016 00:00 (06/18/2016 12:06:Carol Milian RN) : 3 (06/18/2016 12:06:Carol Milian RN) Para: 1 (06/18/2016 12:06:Carol Milian RN) Term: 1 (06/18/2016 12:06:SELWYN Rojas) : 0 (06/18/2016 12:06:SELWYN Rojas) Spontaneous Abortions: 0 (06/18/2016 12:06:SELWYN Rojas) Induced Abortions: 0 (06/18/2016 12:06:SELWYN Rojas) Livin (06/18/2016 12:06:SELWYN Rojas) Cesareans: 0 (06/18/2016 12:06:SELWYN Rojas) VBACs: 0 (06/18/2016 12:06:SELWYN Rojas) Ectopic: 0 (06/18/2016 12:06:SELWYN Rojas) Multiple Births: 0 (06/18/2016 12:06:SELWYN Rojas) Baby, Number in Womb: 1 (06/18/2016 12:06:SELWYN Rojas) CARE [facility] Bead Cutter: [facility] (06/18/2016 12:06:Carol Milian RN) Adequate Care: Yes (06/18/2016 12:06:Carol Milian RN) Height (in): 61 (06/20/2016 10:03:QS system process) ALLERGIES Medication Allergy: No (06/18/2016 12:06:Carol Milian RN) Medication Allergies: No Known Allergies (06/18/2016) (06/18/2016 12:12:QS system process) Latex Allergy: No Latex Allergies (06/18/2016 12:06:Carol Milian RN) COMMUNICATION Primary Language: Thai (06/18/2016 12:06:Carol Milian RN) DEMOGRAPHICS Address: [address] [place] [id number] (06/18/2016 11:41:QS system process) Zipcode: [address] (06/18/2016 11:41:QS system process) Home (06/18/2016 11:41:QS system process) N: [id number] (04/24/2016 10:51:QS system process) Next of Kin Name: ANIVAL GRANDA (04/24/2016 10:51:QS system process) Next of Kin (06/18/2016 11:41:QS system process) Next of Kin Relationship: [place] (04/24/2016 10:51:QS system process) Date of : 1990 (04/24/2016 10:51:QS system process) Marital Status: (04/24/2016 10:51:QS system process) Sex: Female (04/24/2016 10:51:QS system process) Race: Other (04/24/2016 10:51:QS system process) Ethnicity: or (04/24/2016 10:51:QS system process) Confucianist: None (04/24/2016 10:51:QS system process) DRUG AND ALCOHOL USE Alcohol: No (06/18/2016 12:06:Carol Milian RN) Cigarettes: Never Smoker. [id number] (06/18/2016 12:06:Carol Milian RN) Marijuana: No (06/18/2016 12:06:Carol Milian RN) Cocaine: No (06/18/2016 12:06:Carol Milian RN) Other Illicit Drugs: No (06/18/2016 12:06:Carol Milian RN) VACCINE HISTORY Influenza Vaccine: Yes (06/18/2016 12:06:Carol Milian RN) Influenza Date: 03-27-16 (Annotations: Data stored by [employer] on behalf of user) (06/18/2016 12:06:Carol Milian RN) Tetanus Vaccine: Yes (06/18/2016 12:06:SELWYN Rojas) Tetanus Date: 03-27-16 (06/18/2016 12:06:SELWYN Rojas) Tdap Vaccine: Yes (06/18/2016 12:06:Carol Milian RN) Tdap Date: 03-27-16 (06/18/2016 12:06:Carol Milian RN) Vocational Rehabilitation Counselor: [facility] (06/18/2016 12:06:Carol Milian RN) Feeding Preference: Breast (06/18/2016 12:06:Carol Milian RN) Benefit of Breast Feed Discussed: Yes (06/18/2016 12:06:Carol Milian RN) Circumcision: No (06/18/2016 12:06:Carol Milian RN) Classes Attended: No (06/18/2016 12:06:Carol Milian RN) Tubal Ligation: No (06/18/2016 12:06:Carol Milian RN) Tubal Authorization Signed: N/A (06/18/2016 12:06:Carol Milian RN) Consent: N/A (06/18/2016 12:06:Carol Milian RN) Consent Signed: N/A (06/18/2016 12:06:Carol Milian RN) Pain Management Plans: Epidural (06/18/2016 12:06:Carol Milian RN) Support Person: Mario (06/18/2016 12:06:Carol Milian RN) Support Person Relationship: (06/18/2016 12:06:Carol Milian RN) Cultural/Spritual Practice: [facility] (06/18/2016 12:06:Carol Milian RN) Spir/Cult Dietary Needs: No (06/18/2016 12:06:Carol Milian RN) LIVING SITUATION/DISCHARGE PLAN Living Arrangements: [place] (06/18/2016 12:06:Carol Milian RN) Adequate Access to:: Electric; Heat; Refrigeration; Plumbing/Running water; Phone; Transportation (06/18/2016 12:06:Carol Milian RN) WIC Program: [facility] (06/18/2016 12:06:Carol Milian RN) Discharge Industrial Automation Specialist Person: Mario (06/18/2016 12:06:Carol Milian RN) Person to Help after Discharge: Mario (06/18/2016 12:06:Carol Milian RN) Currently Using Commun Resources: [facility] (06/18/2016 12:06:Carol Milian RN) Car Seat for Discharge: Yes (06/18/2016 12:06:Carol Milian RN) Adoption Requested: No (06/18/2016 12:06:Carol Milian RN) LABS Blood Type: O Positive (06/18/2016 12:06:Carol Milian RN) Antibody Screen: negative (06/18/2016 12:06:Carol Milian RN) Hemoglobin: 10.5 L (06/19/2016 07:00:QS system process) Hematocrit: 33.1 L (06/19/2016 07:00:QS system process) MCV: 83 (06/19/2016 07:00:QS system process) Group Beta Strep: negative (06/18/2016 12:06:Carol Milian RN) Chlamydia: Negative (06/18/2016 12:06:Carol Milian RN) RPR/VDRL: Nonreactive (06/18/2016 12:06:Carol Milian RN) Hepatitis B: Negative (06/18/2016 12:06:Carol Milian RN) Rubella: Immune (06/18/2016 12:06:Carol Milian RN) OB/PREVIOUS HISTORY History of Previous : No (06/18/2016 12:06:Carol Milian RN) History of Gestational Diabetes: No (06/18/2016 12:06:Carol Milian RN) History of PIH: No (06/18/2016 12:06:Carol Milian RN) History of Incompetent Cervix: No (06/18/2016 12:06:Carol Milian RN) History of Placenta Previa/Abrup: No (06/18/2016 12:06:Carol Milian RN) History of Macrosomia: No (06/18/2016 12:06:Carol Milian RN) History of IUGR: No (06/18/2016 12:06:Carol Milian RN) History of Hemorrhage: No (06/18/2016 12:06:Carol Milian RN) History of Loss/Stillborn: No (06/18/2016 12:06:Carol Milian RN) History of : No (06/18/2016 12:06:Carol Milian RN) History of D (Rh) Sensitization: No (06/18/2016 12:06:Carol Milian RN) History Recurrent Loss/Stillborn: No (06/18/2016 12:06:Carol Milian RN) History Depression/PP Depression: No (06/18/2016 12:06:Carol Milian RN) History of Uterine Anomaly/KATHERIN: No (06/18/2016 12:06:Carol Milian RN) History of Infertility: No (06/18/2016 12:06:Carol Milian RN) History of ART Treatment: No (06/18/2016 12:06:Carol Milian RN) History of KATHERIN: No (06/18/2016 12:06:Carol Milian RN) Comments Obstetrical History: G1: 2009 - vaginal, female 6#4oz G2: 2011 SAB G3: current (06/18/2016 12:06:Carol Milian RN) MEDICAL HISTORY Med Hx Diabetes: No (06/18/2016 12:06:Carol Milian RN) Med Hx Hypertension: No (06/18/2016 12:06:Carol Milian RN) Med Hx Heart Disease: No (06/18/2016 12:06:Carol Milian RN) Med Hx Autoimmune Disorder: No (06/18/2016 12:06:Carol Milian RN) Med Hx Kidney Disease/UTI: No (06/18/2016 12:06:Carol Milian RN) Med Hx Neurologic/Epilepsy: No (06/18/2016 12:06:Carol Milian RN) Med Hx Psychiatric Disorders: No (06/18/2016 12:06:Carol Milian RN) Med Hx Hepatitis/Liver Disease: No (06/18/2016 12:06:Carol Milian RN) Med Hx Varicosities/Phlebitis: No (06/18/2016 12:06:Carol Milian RN) Med Hx Thyroid Dysfunction: No (06/18/2016 12:06:Carol Milian RN) Med Hx Trauma/Violence: No (06/18/2016 12:06:Carol Milian RN) Med Hx Blood Transfusion: No (06/18/2016 12:06:Carol Milian RN) Med Hx Pulmonary (Asthma,TB): No (06/18/2016 12:06:Carol Milian RN) Med Hx Breast: No (06/18/2016 12:06:Carol Milain RN) Med Hx ELEMENTARY SCHOOL ART TEACHER Surgery: No (06/18/2016 12:06:Carol Milian RN) Med Hx Hospitalization/Surgery: No (06/18/2016 12:06:Carol Milian RN) Med Hx Anesthetic Complications: No (06/18/2016 12:06:Carol Milian RN) Med Hx Abnormal Pap Smear: No (06/18/2016 12:06:Carol Milian RN) Other Medical Diseases: No (06/18/2016 12:06:Carol Milian RN) Med Hx Significant Family Hx: No (06/18/2016 12:06:Carol Milian RN) INFECTIOUS HISTORY Inf Hx Gonorrhea: No (06/18/2016 12:06:Carol Milian RN) Inf Hx Chlamydia: No (06/18/2016 12:06:Carol Milian RN) Inf Hx Syphilis: No (06/18/2016 12:06:Carol Milian RN) Inf Hx HIV/AIDS: No (06/18/2016 12:06:Carol Milian RN) Inf Hx Human Papilloma Virus: No (06/18/2016 12:06:Carol Milian RN) Inf Hx Pt/Partner Genital Herpes: No (06/18/2016 12:06:Carol Milian RN) Inf Hx Tuberculosis/Exposure: No (06/18/2016 12:06:Carol Milian RN) Inf Hx Hepatitis B,C: No (06/18/2016 12:06:Carol Milian RN) Inf Hx Rash or Viral Illness: No (06/18/2016 12:06:Carol Milian RN) GENETIC HISTORY Gen Hx Age >=35 at JUNIOR: No (06/18/2016 12:06:Carol Milian RN) Gen Hx Thalassemia: No (06/18/2016 12:06:Carol Milian RN) Gen Hx Congenital Heart Defect: No (06/18/2016 12:06:Carol Milian RN) Gen Hx Neural Tube Defect: No (06/18/2016 12:06:Carol Milian RN) Gen Hx Down's Syndrome: No (06/18/2016 12:06:Carol Milian RN) Gen Hx Aniceto-Sachs: No (06/18/2016 12:06:Carol Milian RN) Gen Hx Raeann: No (06/18/2016 12:06:Carol Milian RN) Gen Hx Familial Dysautonomia: No (06/18/2016 12:06:Carol Milian RN) Gen Hx Sickle Cell Disease/Trait: No (06/18/2016 12:06:Carol Milian RN) Gen Hx Hemophilia/Blood Disorder: No (06/18/2016 12:06:Carol Milian RN) Gen Hx Muscular Dystrophy: No (06/18/2016 12:06:Carol Milian RN) Gen Hx Cystic Fibrosis: No (06/18/2016 12:06:Carol Milian RN) Gen Hx [place] Chorea: No (06/18/2016 12:06:Carol Milian RN) Gen Hx Mental Retardation/Autism: No (06/18/2016 12:06:Carol Milian RN) Gen Hx Tested for Fragile X: No (06/18/2016 12:06:Carol Milian RN) Gen Hx Other Inher/Chromosomal: No (06/18/2016 12:06:Carol Milian RN) Gen Hx Maternal Metabolic DO: No (06/18/2016 12:06:Carol Milian RN) Gen Hx Pt Father or FOB Defect: No (06/18/2016 12:06:Carol Milian RN) Gen Hx Other Genetic History: No (06/18/2016 12:06:Carol Milian RN) Gen Hx Drugs/Meds since LMP: No (06/18/2016 12:06:Carol Milian RN)
== END 2016-06-20 12:10 | disposition home or self-care (01) | DRG 775 ==
LOC: LC 11:41 → LR 14:04 → 2S 19:28
PROVIDERS: ADMIT Obstetrics & Gynecology; ATTEND Obstetrics & Gynecology
PROC: 10D07Z6 Extraction of Products of Conception, Vacuum, Via Natural or Artificial Opening (ICD-10-PCS; principal; 2016-06-18)
PROC: 0KQM0ZZ Repair Perineum Muscle, Open Approach (ICD-10-PCS; 2016-06-18)
DX: O76 Abnormality in fetal heart rate and rhythm complicating labor and delivery (principal); O77.0 Labor and delivery complicated by meconium in amniotic fluid; O70.1 Second degree perineal laceration during delivery; Z3A.39 39 weeks gestation of pregnancy; Z37.0 Single live birth
CPT/HCPCS: 36415; 80307; 81005; 85025; 85027; 86592; 86850; 86900; 86901; 94760; J2370; J2590; J3010; J3490